=== PATIENT | male | born 1960 | race African-American/Black ===

== ENCOUNTER 2019-11-21 11:04 | Emergency (ER) | payer OTHER, BC, SELFPAY ==
--- NOTE | ~2019-11-21 | XR_ITS ---
EXAMINATION: XR ankle RT min 3V DATE: 11/21/2019 11:32 INDICATION: Medial right ankle pain post injury TECHNIQUE: Anteroposterior, oblique, mortise, and lateral views of the right ankle were obtained. COMPARISON: None. FINDINGS: Small triangular ossicle along the tip of the lateral malleolus which represent a couple projections appears to lack cortication along its cephalad margin suggesting a mildly distracted avulsion fractur e involving the tip of the medial malleolus. Differential would include heterotopic ossification rela rickey to chronic deltoid ligament sprain. Alignment is otherwise normal. No other fractures identified. Joint spaces are relatively preserved. Small plantar calcaneal spur. Soft tissue swelling about the medial malleolus. No ankle joint effusion. IMPRESSION: 1. Likely mildly distracted avulsion fracture at the tip of the medial malleolus. Differential would include heterotopic ossicle related to chronic deltoid ligament sprain. Reviewed, dictated and finalized at location A. IMPRESSION: 1. Likely mildly distracted avulsion fracture at the tip of the medial malleolu s. Differential would include heterotopic ossicle related to chronic deltoid li gament sprain.
[2019-11-21 11:13] VITALS: BP 130/93; PULSE 86; RESP 18; TEMP 36.6; O2SAT 99
--- NOTE | 2019-11-21 11:15 | PC.NURSE ---
PREETHI Dickerson at bedside for assessment.
--- NOTE | 2019-11-21 11:21 | ED.LOWEXIN ---
HPI - Extremity Injury (Lower) General Chief Complaint: Extremity Injury, Lower Stated Complaint: right ankle pain Time Seen by Provider: 11/21/19 11:10 Source: patient Mode of arrival: ambulatory Limitations: no limitations History of Present Illness HPI Narrative: This is a 59-year-old male that presents the emergency department for right ankle pain x1 month. Reports he twisted the ankle a month ago and was diagnosed with ankle sprain. Reports he has continued to work since. Reports initially he was given an air splint which helped. Reports yesterday he wore just an [place] wrap on the ankle and since his pain has worsened again. Denies new injuries, decreased range of motion or numbness. Related Data Allergies Allergy/AdvReac Type Severity Reaction Status Date / Time No Known Allergies Allergy Verified 11/21/19 11:13 Review of Systems Review of Systems: Narrative: CONSTITUTIONAL: Denies fever SKIN: Denies rash or itching. MUSCULOSKELETAL: Reports joint pain, and myalgia. NEUROLOGIC: Denies numbness All systems reviewed & are unremarkable except as noted in HPI and below PMFSH Social History Social History (Updated 11/21/19 @ 11:23 by Jayla Powell PA-C) Smoking status: Never smoker Substance use: never Exam Narrative: Exam Narrative: GENERAL: Well-appearing, well-nourished, and in no acute distress. HEAD: Normocephalic, atraumatic. EYES: EOMI. EXTREMITIES: Normal range of motion. No edema or obvious deformity. Normal DP pulses. Normal sensation SKIN: Warm, dry, no rash. NEURO: No focal deficits. Alert and oriented x3. PSYCH: Normal mood and affect Course Consultations Consultation #1: Spoke with Dr. Concepcion about patient and work-up who saw patient in the ED. He will follow-up with patient in clinic Date: 11/21/19 Time: 12:24 Vital Signs Vital signs: Vital Signs Temperature 97.8 F 11/21/19 11:13 Pulse Rate 86 11/21/19 11:13 Respiratory Rate 18 11/21/19 11:13 Blood Pressure 130/93 H 11/21/19 11:13 Pulse Oximetry 99 11/21/19 11:13 Temperature 97.8 F 11/21/19 11:13 Pulse Rate 86 11/21/19 11:13 Respiratory Rate 18 11/21/19 11:13 Blood Pressure 130/93 H 11/21/19 11:13 Pulse Oximetry 99 11/21/19 11:13 MDM - Extremity Injury (Lower) MDM Narrative Medical decision making narrative: Patient presents to the emergency department for right ankle injury 1 month ago. Right ankle x-ray shows a mildly distracted avulsion fracture of the tip of the medial malleolus. Spoke with Dr. Concepcion who saw patient in the ED. Patient can use his air splint that he has and will be given crutches. Instructed to rest, ice, elevate and take pain medication as needed. He is to follow-up with Dr. Concepcion in clinic. He was given warnings to return to the ER Imaging Data Radiologist's impression: ITS Impressions Ankle X-Ray 11/21/19 11:33 IMPRESSION: 1. Likely mildly distracted avulsion fracture at the tip of the medial malleolus. Differential would include heterotopic ossicle related to chronic deltoid ligament sprain. Critical Care Time Critical Care Time Critical Care Time: No Discharge Plan Discharge Clinical Impression: Avulsion fracture of medial malleolus of right tibia Qualifiers: Encounter type: initial encounter Fracture type: closed Qualified Code(s): S82.51XA - Displaced fracture of medial malleolus of right tibia, initial encounter for closed fracture Patient Disposition: Home, Self-Care Condition: Stable Instructions: Ankle Fracture (ED) Additional Instructions: Return to the emergency department if you experience fever, redness and swelling of your leg, or any other symptoms that are concerning to you Wear splint and use crutches. No weight on the affected leg. Ice and elevate extremity. Pain medication as needed Follow up with orthopedics for further care. Prescriptions: New hydrocodone-acetaminophen 5-325 mg tablet 1
--- NOTE | 2019-11-21 11:25 | PC.NURSE ---
portable xray at bedside at this time.
[2019-11-21] MEDS: KETOROLAC (*BKC) 60 MG/2 ML VIAL IM (11:30)
[2019-11-21 12:38] VITALS: BP 128/90; PULSE 67; RESP 18; O2SAT 98
--- NOTE | 2019-11-21 17:00 | P.CONOP_ITS ---
Assessment and Plan Assessment and plan (1) Avulsion fracture of medial malleolus of right tibia: Qualifiers: Encounter type: initial encounter Fracture type: closed Qualified Code(s): S82.51XA - Displaced fracture of medial malleolus of right tibia, initial encounter for closed fracture Code(s): S82.51XA - Displaced fracture of medial malleolus of right tibia, initial encounter for closed fracture Status: Acute Assessment and Plan: Medial malleolus avulsion fracture. Partially healed injury. Increased pain recently after discontinuing the Aircast stirrup splint. I recommend using the Aircast again. He may bear weight as tolerated. I reviewed the radiographs with the patient and his . Small distal fragment of the medial malleolus shows mild displacement. The ankle mortise appears otherwise intact. Expect good healing of the deltoid ligament despite the nonunion. History of Present Illness HPI Consult date: 11/21/19 Chief complaint: right ankle pain Narrative: 59-year-old male presents with severe medial ankle pain. Reports twisting ankle severely approximately 1 month ago. He was treated with an Aircast splint. He continue to work. Injury occurred at work. He is doing very well despite some persistent swelling and pain until recently. He was changed to a afterschool support brace. [place] pressure on arch on the medial aspect of the ankle with this wrap. No further instability. Associated swelling present. No numbness or tingling. No previous history of injury. Pain is primaily medial and anterior. Review of Systems Review of Systems: All systems reviewed & are unremarkable except as noted in HPI and below [facility] Social History Social History (Updated 11/21/19 @ 11:23 by Jayla Powell PA-C) Smoking status: Never smoker Substance use: never Meds Home Medications and Allergies Home Medications Medication Instructions Recorded Confirmed Type hydrocodone-acetaminophen 1 tablet PO Q6H PRN #14 tablet 11/21/19 Rx Allergies Allergy/AdvReac Type Severity Reaction Status Date / Time No Known Allergies Allergy Verified 11/21/19 11:13 Vital Signs Vital Signs - 24 hr 11/21/19 11:13 11/21/19 12:38 Temperature 36.6 C Pulse Rate 86 67 Respiratory Rate 18 18 Blood Pressure 130/93 H 128/90 Pulse Oximetry 99 98 Exam Narrative: Exam Narrative: Healthy-appearing male. No distress. Appropriate affect. Shows good insight. Right foot mild pes planus. Exquisite tenderness at the anteromedial deltoid ligament and distal medial malleolus. Moderate swelling. No ecchymosis. No gross instability. Dorsiflexion 5? plantar flexion 30?. No significant tenderness at the distal fibula. Anterolateral ankle ligaments are mildly tender. Anterior drawer is limited by pain. Achilles feels benign. No other forefoot deformities are unusual skin changes. Tibia leg and knee appear normal. Contralateral foot and ankle similar pes planus but no other significant findings. Capillary refill is brisk. Dorsalis pedis pulse palpable. Results Labs Labs: All other labs normal.
== END 2019-11-21 12:40 | disposition home or self-care (01) ==
PROVIDERS: Emergency Provider Emergency Medicine
DX: S82.51XA Displaced fracture of medial malleolus of right tibia, initial encounter for closed fracture (principal); X50.9XXA Other and unspecified overexertion or strenuous movements or postures, initial encounter
CPT/HCPCS: 73610; 96372; 99284; J1885

== ENCOUNTER 2020-05-06 12:42 | Emergency (ER) | payer BC, SELFPAY ==
[2020-05-06 12:58] VITALS: PULSE 90; TEMP 36.6; O2SAT 99
[2020-05-06] MEDS: TETANUS,DIPHTHERIA,AC PERTUSSIS ADULT (0.5 ML) BOOSTRIX IM (13:54)
[2020-05-06 14:18] VITALS: BP 132/97; PULSE 74; RESP 18; TEMP 36.8; O2SAT 99
--- NOTE | 2020-05-06 21:56 | ED.GENADULT ---
HPI - General Adult General Chief complaint: Wound/Laceration Stated complaint: L FINGER LAC Time Seen by Provider: 05/06/20 12:44 Source: patient Mode of arrival: ambulatory Limitations: no limitations History of Present Illness HPI narrative: Patient presents with chief complaint of left index finger laceration that he sustained after accidentally cutting himself with a kitchen knife. Patient reports some mild bleeding but denies any bony tenderness or loss sensation. Patient states that he is not up-to-date on tetanus. Related Data Home Medications Medication Instructions Recorded Confirmed No Home Medications 05/06/20 05/06/20 Allergies Allergy/AdvReac Type Severity Reaction Status Date / Time No Known Allergies Allergy Verified 05/06/20 12:57 Review of Systems Review of Systems: Narrative: CONSTITUTIONAL: Denies fever, chills, or sweats. EYES: Denies visual changes, redness, or discharge. ENT: Denies rhinorrhea, congestion, sore throat, or otalgia. CARDIOVASCULAR: Denies chest pain, palpitations, or edema. RESPIRATORY: Denies cough or dyspnea. GASTROINTESTINAL: Denies abdominal pain, nausea, vomiting, or diarrhea. GENITOURINARY: Denies dysuria or hematuria. SKIN: Reports laceration denies rash or itching. MUSCULOSKELETAL: Denies back pain, joint pain, or myalgia. NEUROLOGIC: Denies headache, numbness, dizziness, or weakness. PSYCHIATRIC: Denies anxiety or depression. [facility] Social History Social History (Updated 11/21/19 @ 11:23 by Jayla Powell PA-C) Smoking status: Never smoker Substance use: never Gender identity (if verbalized by the patient): Male Exam Narrative: Exam Narrative: GENERAL: Well-appearing, well-nourished, and in no acute distress. HEAD: Normocephalic, atraumatic. EYES: PERRLA and EOMI. CHEST: Clear to auscultation. No respiratory distress. No wheezes rales or rhonchi HEART: Regular rate and rhythm. EXTREMITIES: Normal range of motion. No edema. SKIN: 2 cm linear well approximated laceration to the volar aspect left index finger. Warm, dry, no rash. NEURO: No focal deficits. Alert and oriented x3. PSYCH: Normal mood and affect. Course Vital Signs Vital signs: Vital Signs Temperature 97.9 F 05/06/20 12:58 Pulse Rate 90 05/06/20 12:58 Pulse Oximetry 99 05/06/20 12:58 Temperature 98.2 F 05/06/20 14:18 Pulse Rate 74 05/06/20 14:18 Respiratory Rate 18 05/06/20 14:18 Blood Pressure 132/97 H 05/06/20 14:18 Pulse Oximetry 99 05/06/20 14:18 Procedures Laceration Laceration 1: Site: upper extremity Side (If applicable): left Size (cm): 2 Description: linear Depth: simple, single layer Local Anesthetic: none Pre-repair: irrigated extensively ====== Skin Level ====== Skin layer closed with: dermabond ====== Subcutaneous Layer ====== ====== Muscle Layer ====== ====== Tendon Layer ====== Dressing: Finger splint applied to laceration protection Medical Decision Making MDM Narrative Medical decision making narrative: Discussed signs of infection and require closer follow-up as well as wound care instructions. Patient verbalized understanding and agreement with plan denies any other questions or concerns Differential Diagnosis Differential Diagnosis: Laceration, abscess, abrasion Vital Signs Vital Signs: Vital Signs Temperature 97.9 F 05/06/20 12:58 Pulse Rate 90 05/06/20 12:58 Pulse Oximetry 99 05/06/20 12:58 Temperature 98.2 F 05/06/20 14:18 Pulse Rate 74 05/06/20 14:18 Respiratory Rate 18 05/06/20 14:18 Blood Pressure 132/97 H 05/06/20 14:18 Pulse Oximetry 99 05/06/20 14:18 Discharge Plan Discharge Clinical Impression: Laceration Patient Disposition: Home, Self-Care Condition: Improved Instructions: Antibiotic Form, Laceration (ED) Additional Instructions: Keep areas clean. Wash with antibacterial so
== END 2020-05-06 14:23 | disposition home or self-care (01) ==
PROVIDERS: Emergency Provider Emergency Medicine
DX: S61.211A Laceration without foreign body of left index finger without damage to nail, initial encounter (principal); Z23 Encounter for immunization; W26.0XXA Contact with knife, initial encounter
CPT/HCPCS: 12001; 90471; 90715; 99282

== ENCOUNTER 2022-03-22 22:49 | Emergency (ER) | payer BC, SELFPAY ==
--- NOTE | ~2022-03-22 | XR_ITS ---
EXAMINATION: XR finger 2nd RT min 2V DATE: 03/22/2022 23:24 INDICATION: Right hand second digit injury. TECHNIQUE: 4 views of right hand second digit were obtained. COMPARISON: None. FINDINGS: Bone alignment is normal. There is a nondisplaced stellate fracture of second distal phalan x. 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 IMPRESSION: 1. Nondisplaced stellate fracture of second distal phalanx. Reviewed, dictated and finalized at location A.
[2022-03-22 22:51] VITALS: BP 148/98; PULSE 81; RESP 16; TEMP 36.8; O2SAT 100
--- NOTE | 2022-03-22 23:48 | ED.UPPEXIN ---
HPI - Extremity Injury (Upper) General Chief Complaint: Extremity Injury, Upper Stated Complaint: right index injury Time Seen by Provider: 03/22/22 23:02 History of Present Illness HPI narrative: Patient is a 62-year-old male who presents ER with injury to his right finger. He was putting a 45 pound weight back on the rack when it slipped and he cut his finger. No active bleeding. No pain over the finger but the fatpad has a laceration. No numbness or tingling. Use tetanus up-to-date. Range of motion intact. Related Data Allergies Allergy/AdvReac Type Severity Reaction Status Date / Time No Known Allergies Allergy Verified 05/06/20 12:57 Review of Systems Review of Systems: All systems reviewed & are unremarkable except as noted in HPI and below Musculoskeletal: Musculoskeletal: Denies arthralgias and Denies joint swelling Integumentary/Breasts: Skin/Breast: Denies erythema and Denies rash Comments: Finger laceration. Neurologic: Denies focal weakness and Denies numbness PMFSH Past Medical History Medical History (Updated 03/23/22 @ 01:34 by Timothy Fan MD) Healthy adult male Surgical History Surgical History (Updated 03/23/22 @ 00:26 by Timothy Fan MD) No pertinent past surgical history Social History Social History (Updated 11/21/19 @ 11:23 by Jayla Powell PA-C) Smoking status: Never smoker Substance use: never Gender identity (if verbalized by the patient): Male Exam Narrative: GENERAL: Well-appearing, well-nourished, and in no acute distress. HEAD: Normocephalic, atraumatic. HEART: Regular rate and rhythm. Normal peripheral pulses. EXTREMITIES: Focused exam of the right hand reveals a 1.5 cm laceration over the fat pad of the digit with intact flexion extension DIP/PIP. Sensation intact. Minimal bruising over the fat pad as well. On tenderness over the dorsal aspect of the finger but no visible evidence of trauma. SKIN: Warm, dry, no rash. NEURO: Alert and oriented x3. PSYCH: Normal mood and affect. Course Vital Signs Vital signs: Vital Signs Temperature 98.3 F 03/22/22 22:51 Pulse Rate 81 03/22/22 22:51 Respiratory Rate 16 03/22/22 22:51 Blood Pressure 148/98 H 03/22/22 22:51 Pulse Oximetry 100 03/22/22 22:51 Oxygen Delivery Room Air 03/22/22 22:51 Temperature 98.3 F 03/22/22 22:51 Pulse Rate 72 03/23/22 01:00 Respiratory Rate 16 03/23/22 01:00 Blood Pressure 151/99 H 03/23/22 01:00 Pulse Oximetry 100 03/23/22 01:00 Oxygen Delivery Room Air 03/22/22 22:51 Procedures Laceration Laceration 1: Date: 03/23/22 Time: 01:20 Site: other (2nd finger) Side (If applicable): right Size (cm): 1.5 Description: linear Depth: simple, single layer Local Anesthetic: lidocaine 2% and with epi Amount of anesthesia used (mL): 1.5 Pre-repair: irrigated ====== Skin Level ====== Skin layer closed with: nylon Size (cm): 5-0 Number of sutures: 3 Technique: simple, interrupted ====== Subcutaneous Layer ====== ====== Muscle Layer ====== ====== Tendon Layer ====== Dressing: Finger splint applied. MDM - Extremity Injury (Upper) Imaging Data My impression: Right second digit x-ray: Nondisplaced fracture of the dorsal aspect of the distal phalanx. Discharge Plan Discharge Clinical Impression: Fracture of distal phalanx of finger, Finger laceration Patient Disposition: Home, Self-Care Condition: Stable Instructions: Antibiotic Form, Care For Your Stitches (ED), Finger Fracture (ED) Additional Instructions: Will need your sutures out in 14 days. Follow-up with primary care doctor. We are going to be treated with an antibiotic since you have an open wound near a fracture. This takes as directed. Return to the ER if your finger is red and hot, there is pus draining from the wound, you have a
[2022-03-23 01:00] VITALS: BP 151/99; PULSE 72; RESP 16; O2SAT 100
== END 2022-03-23 01:40 | disposition home or self-care (01) ==
PROVIDERS: Emergency Provider Emergency Medicine
DX: S61.210A Laceration without foreign body of right index finger without damage to nail, initial encounter (principal); S62.660A Nondisplaced fracture of distal phalanx of right index finger, initial encounter for closed fracture; W22.8XXA Striking against or struck by other objects, initial encounter
CPT/HCPCS: 12001; 29130; 73140; 99284

== ENCOUNTER 2023-02-10 12:07 | Emergency (ER) | payer BC, SELFPAY ==
[2023-02-10] VITALS (17 sets, daily range): BP systolic 103–127; BP diastolic 82–96; PULSE 71–91; RESP 12–27; TEMP 36.4–36.5; O2SAT 96–100
--- NOTE | ~2023-02-10 | XR_ITS ---
XR chest 1V portable 02/10/2023 13:33 Indication: Shortness of breath with exertion Procedure: AP portable chest Comparison: No prior studies for comparison. Findings: Cardiomegaly. There are bilateral perihilar interstitial infiltrates with peribronchial thi ckening. No pleural effusion, pneumothorax or acute osseous abnormality. Impression: 1: Bilateral perihilar interstitial infiltrates may represent mild edema or pneumonia. Reviewed, dictated and finalized at location A. Impression: 1: Bilateral perihilar interstitial infiltrates may represent mild edema or pne umonia.
--- NOTE | 2023-02-10 12:17 | ECG_ITS ---
Measurements Intervals [place] Rate: 84 P: 81 IN: 215 QRS: -45 QRSD: 72 T: 92 QT: 387 QTc: 460 Interpretive Statements SINUS RHYTHM WITH FIRST DEGREE AV BLOCK ATRIAL PREMATURE COMPLEX BORDERLINE R WAVE PROGRESSION, ANTERIOR LEADS LOW QRS VOLTAGE IN DIFFUSE LEADS BORDERLINE T WAVE ABNORMALITY- INF/LAT LEADS BASELINE ARTIFACT- II, III, AVR, AVL, AVF, V1-V6 BORDERLINE ECG NO PREVIOUS ECG AVAILABLE FOR COMPARISON Electronically Signed On 02-10-2023 14:47:33 CDT by Kiran Barfield D.O.
[2023-02-10 12:51] LABS: Basophils Absolute Auto 0.1 K/mm3 (0.0-0.1); Eosinophils Absolute Auto 0.2 K/mm3 (0-0.3); Hemoglobin 10.5 g/dL (14.0-18.0); Lymphocytes Absolute Auto 1.59 K/mm3 (0.9-3.2); Lymphocytes Percent Auto 31.9 % (18.3-44.2); Mean Corpuscular HGB Conc 30.9 g/dl (32-36); Mean Corpuscular Hemoglobin 27.6 pg (26-34); Mean Corpuscular Volume 89.2 fl (80-100); Mean Platelet Volume 10.6 fl (7.4-10.4); Monocytes Absolute Auto 0.6 K/mm3 (0.1-0.6); Monocytes Percent Auto 11.2 % (2.6-8.5); Neutrophils Absolute Auto 2.6 K/mm3 (1.3-6.7); Neutrophils Percent Auto 52.9 % (45.5-73.1); Platelet Count Result 274 k/mm3 (150-375); Red Blood Count 3.81 M/mm3 (4.6-6.20); Red Cell Distribution Width 15.7 % (11.5-14.5)
[2023-02-10 13:00] LABS: Alanine Aminotransferase 40 U/L (6-50); Albumin Level 3.6 g/dL (3.5-5.1); Alkaline Phosphatase 80 U/L (38-126); Anion Gap 4 mmol/L (8-16); Aspartate Amino Transferase 35 U/L (17-59); Bilirubin,Total 1.2 mg/dL (0.2-1.3); Blood Urea Nitrogen 16 mg/dL (9-20); Calcium 8.7 mg/dL (8.4-10.2); Carbon Dioxide 26 mmol/L (22-30); Chloride 106 mmol/L (98-107); Estimated CRCL calculation 63 ml/min; Estimated Glomerular Filt Rate > 60; Glucose 96 mg/dL (65-110); Potassium 4.2 mmol/L (3.4-5.0); Sodium 136 mmol/L (137-145)
[2023-02-10 13:05] LABS: INR 1.1; Prothrombin Time 14.8 Seconds (11.1-14.7)
[2023-02-10 13:06] LABS: Partial Thromboplastin Time 25.8 SECONDS (22.3-36.8)
[2023-02-10 13:09] LABS: NT Pro B Type Natriuretic Pept 4460 pg/mL (19.9-100)
[2023-02-10] MEDS: FUROSEMIDE INJ 40 MG/4 ML VIAL IV PUSH (14:18)
--- NOTE | 2023-02-10 14:19 | ED.SOB ---
HPI - SOB/Dyspnea General Chief Complaint: Shortness of Breath/Dyspnea Stated Complaint: Gas, SOB Time Seen by Provider: 02/10/23 12:21 History of Present Illness HPI Narrative: 63-year-old male presented to the ED for evaluation of 1.5 months of worsening leg swelling and shortness of breath. Patient denies any prior history of congestive heart failure. Patient denies any prior history of UT or hypertension. Patient states symptoms have been intermittent over the course of the last 1.5 months and do improve with leg elevation. Related Data Allergies Allergy/AdvReac Type Severity Reaction Status Date / Time No Known Allergies Allergy Verified 02/10/23 12:13 Review of Systems Review of Systems: All systems reviewed & are unremarkable except as noted in HPI and below PMFSH Past Medical History Medical History (Updated 02/11/23 @ 00:01 by Chele Horn) Healthy adult male Surgical History Surgical History (Updated 03/23/22 @ 00:26 by Timothy Fan MD) No pertinent past surgical history Social History Social History (Updated 11/21/19 @ 11:23 by Jayla Powell PA-C) Smoking status: Never smoker Substance use: never Gender identity (if verbalized by the patient): Male Exam Narrative: APPEARANCE: Well appearing, no pain, no distress, well-nourished. HEAD: normocephalic, atraumatic. EYES: PERRLA/EOMI, conjunctivae clear. NOSE: Normal no drainage NECK: Supple. No adenopathy, no masses. RESPIRATORY: Airway patent, increased work of breathing CARDIOVASCULAR: Regular rate and rhythm without murmurs rubs or gallops. ABDOMINAL: Soft, nontender, nondistended, normal bowel sounds MUSCULOSKELETAL: Moves all extremities. Strength/ROM intact, lower extremity edema and ecchymosis, right upper extremity ecchymosis NEURO: Alert. Cranial nerves II through XII intact. SKIN: Warm, dry. Normal Color Course Course Emergency Course: 63-year-old male presented ED for evaluation of intermittent shortness of breath. Patient is afebrile with no leukocytosis and a stable hemoglobin. Patient has normal kidney function but does have an elevated BNP of 4460. Chest x-ray does show pulmonary edema and cardiomegaly. Attempted to contact the patient's primary care physician. Patient was offered admission but prefers to have outpatient follow-up. Patient was treated with Lasix in the ED and had significant urinary output and did feel improvement while in the ED. Patient was started on Lasix for home. Patient was encouraged of close follow-up with her primary care physician. Patient family are also educated on reasons to return to the emergency department. Vital Signs Vital signs: Vital Signs Temperature 97.7 F 02/10/23 12:09 Pulse Rate 91 02/10/23 12:09 Respiratory Rate 19 02/10/23 12:09 Blood Pressure 103/82 02/10/23 12:09 Pulse Oximetry 99 02/10/23 12:09 Oxygen Delivery Room Air 02/10/23 12:09 Temperature 97.5 F L 02/10/23 12:23 Pulse Rate 71 02/10/23 16:06 Respiratory Rate 13 02/10/23 16:06 Blood Pressure 127/95 H 02/10/23 16:06 Pulse Oximetry 99 02/10/23 16:06 Oxygen Delivery Room Air 02/10/23 12:18 MDM - SOB/Dyspnea Differential Diagnosis Differential diagnosis: Likely congestive heart failure and other Lab Data Attestation: I reviewed the patient's lab results. 02/10/23 12:45 02/10/23 12:45 Labs: Lab Results 02/10/23 Range/Units 12:45 WBC 5.0 (4.5-10.0) K/mm3 RBC 3.81 L (4.6-6.20) M/mm3 Hgb 10.5 L (14.0-18.0) g/dL Hct 34.0 L (42.0-52.0) % MCV 89.2 (80-100) fl MCH 27.6 (26-34) pg MCHC 30.9 L (32-36) g/dl RDW 15.7 H (11.5-14.5) % Plt Count 274 (150-375) k/mm3 MPV 10.6 H (7.4-10.4) fl Immature Gran % (Auto) 0.0 (0-0.5) % Neut % (Auto) 52.9 (45.5-73.1) % Lymph % (Auto) 31.9 (18.3-44.2) % [place] % (Auto) 11.2 H (2.6-8.5) % Eos % (Auto) 3.0 (0-4.4) % Baso % (Auto) 1.0 (0.2-
== END 2023-02-10 16:07 | disposition home or self-care (01) ==
PROVIDERS: Emergency Provider Emergency Medicine
DX: I50.9 Heart failure, unspecified (principal); J81.1 Chronic pulmonary edema; R22.43 Localized swelling, mass and lump, lower limb, bilateral; I44.0 Atrioventricular block, first degree; I49.1 Atrial premature depolarization; R94.31 Abnormal electrocardiogram [ECG] [EKG]
CPT/HCPCS: 36415; 71045; 80053; 83880; 85025; 85610; 85730; 93005; 96374; 99284; J1940

== ENCOUNTER 2023-04-22 15:24 | Inpatient (IN) | payer BC, SELFPAY ==
[2023-04-22] VITALS (9 sets, daily range): BP systolic 109–120; BP diastolic 90–93; PULSE 63–123; RESP 17–28; TEMP 36.6; O2SAT 97–100
--- NOTE | ~2023-04-22 | CT_ITS ---
Clinical Indication: Dyspnea CT Scan of the Chest with Contrast: Technique: Contiguous sections were acquired throughout the chest after intravenous administration of 100 cc of Omnipaque 350. Dose reduction technique was used on this scan by utilizing automated expos ure control and iterative reconstruction technique. The dose-length product (DLP) was 648.56 mGy-cm. Findings: There are enlarged prevascular and subcarinal lymph nodes. There is no filling defect in the pulmonar y arterial tree to suggest pulmonary embolus. There is no evidence of aortic aneurysm. No pericardial effusion. Small right pleural effusion present. No left pleural effusion. There is mild patchy groundglass opacity in the left upper lobe. Possible minimal groundglass nodules in the left lower lobe minimal bibasilar interstitial prominence. Images through the upper abdomen reveal 2.8 cm right adrenal nodule, with Hounsfield units of 14.. Impression: No pulmonary embolus evident. Mild patchy ground glass opacity in the left upper lobe, with minimal involvement in the left lower l obe. Possible mild dependent interstitial thickening. Findings overall suggest mild pulmonary edema. Correlate clinically for infection. Small right pleural effusion. 2.8 cm relatively low-density right adrenal nodule is most likely adenoma, though strictly indetermin ate based on the Hounsfield units on this exam. Follow-up nonemergent MR could be considered to furth er confirm adenoma, as indicated. Reviewed, dictated and finalized at [facility]. [employer] Impression: No pulmonary embolus evident. Mild patchy ground glass opacity in the left upper lobe, with minimal involveme nt in the left lower lobe. Possible mild dependent interstitial thickening. Fin dings overall suggest mild pulmonary edema. Correlate clinically for infection. Small right pleural effusion. 2.8 cm relatively low-density right adrenal nodule is most likely adenoma, thou gh strictly indeterminate based on the Hounsfield units on this exam. Follow-up nonemergent MR could be considered to further confirm adenoma, as indicated.
--- NOTE | ~2023-04-22 | XR_ITS ---
Portable chest x-ray Comparison: 02/10/2023 Clinical History: Dyspnea Findings: There is minimal haziness of the left lung as compared to the right, which could indicate small layering effusion. No other parenchymal disease evident. Cardiomediastinal silhouette is stabl e. Bones and soft tissues are unremarkable. Impression: Possible small layering left pleural effusion. Reviewed, dictated and finalized at location . [employer] Impression: Possible small layering left pleural effusion.
--- NOTE | 2023-04-22 22:27 | ECG_ITS ---
Measurements Intervals [place] Rate: 88 P: AL: 0 QRS: -29 QRSD: 80 T: 149 QT: 388 QTc: 471 Interpretive Statements SINUS RHYTHM WITH PACS BORDERLINE LEFT AXIS DEVIATION [QRS AXIS < -20] LOW QRS VOLTAGE IN EXTREMITY LEADS [QRS DEFLECTION < 0.5 mV IN LIMB LEADS] NONSPECIFIC T-WAVE ABNORMALITY ABNORMAL ECG COMPARED TO ECG 02/10/2023 12:20:58 NO SIGNIFICANT DIFFERENCE Electronically Signed On 04-23-2023 15:05:51 MEDICAL DOCTOR NUCLEAR MEDICINE by Omar Savage M.D.
[2023-04-22] MEDS: FUROSEMIDE INJ 40 MG/4 ML VIAL IV PUSH (22:57)
[2023-04-22 23:07] LABS: Basophils Absolute Auto 0.1 K/mm3 (0.0-0.1); Basophils Percent Auto 0.9 % (0.2-1.2); Eosinophils Absolute Auto 0.2 K/mm3 (0-0.3); Eosinophils Percent Auto 3.4 % (0-4.4); Hematocrit 31.4 % (42.0-52.0); Hemoglobin 9.2 g/dL (14.0-18.0); Immature Granulocyte Absolute 0.02 K/mm3 (0.00-0.031); Immature Granulocyte Percent A 0.3 % (0-0.5); Lymphocytes Absolute Auto 2.56 K/mm3 (0.9-3.2); Lymphocytes Percent Auto 39.8 % (18.3-44.2); Mean Corpuscular HGB Conc 29.3 g/dl (32-36); Mean Corpuscular Hemoglobin 24.2 pg (26-34); Mean Corpuscular Volume 82.6 fl (80-100); Mean Platelet Volume 10.4 fl (7.4-10.4); Monocytes Absolute Auto 0.8 K/mm3 (0.1-0.6); Monocytes Percent Auto 12.3 % (2.6-8.5); Neutrophils Absolute Auto 2.8 K/mm3 (1.3-6.7); Neutrophils Percent Auto 43.3 % (45.5-73.1); Platelet Count Result 274 k/mm3 (150-375); White Blood Count 6.4 K/mm3 (4.5-10.0)
[2023-04-22 23:22] LABS: INR 1.2; Prothrombin Time 15.7 Seconds (11.1-14.7)
[2023-04-22 23:29] LABS: Alanine Aminotransferase 66 U/L (6-50); Albumin Level 3.4 g/dL (3.5-5.1); Alkaline Phosphatase 84 U/L (38-126); Anion Gap 9 mmol/L (8-16); Aspartate Amino Transferase 47 U/L (17-59); Bilirubin,Total 0.8 mg/dL (0.2-1.3); Blood Urea Nitrogen 20 mg/dL (9-20); Calcium 8.1 mg/dL (8.4-10.2); Carbon Dioxide 24 mmol/L (22-30); Chloride 101 mmol/L (98-107); Estimated CRCL calculation 54 ml/min; Estimated Glomerular Filt Rate > 60; Glucose 93 mg/dL (65-110); Lipase 249 U/L (23-300); Potassium 3.4 mmol/L (3.4-5.0); Sodium 134 mmol/L (137-145)
[2023-04-22 23:30] LABS: Appearance Urine Clear (Clear); Bacteria Urine None Seen /hpf; Bilirubin Urine Negative (Negative); Blood Urine Negative (Negative); Color Urine Yellow (Yellow); Glucose Urine UA Negative (Negative); Ketones Urine Negative (Negative); Leukocyte Esterase Ur Negative LEU/UL (Negative); Nitrate Urine Negative (Negative); Non Pathogenic Casts 0-2; Protein Urine Trace mg/dL (Negative); RBC Urine 0-2 /hpf (0-2); Specific Grav Ur 1.012 (1.001-1.035); Squamous Epithelial Cell Urine None seen /hpf (Few); WBC Urine 0-5 /hpf; pH Urine 6.5 (5.0-9.0)
--- NOTE | 2023-04-22 23:45 | PC.NURSE ---
THis RN took pt report from ZACK Echevarria. This RN assumed care of patient.
[2023-04-22 23:47] LABS: NT Pro B Type Natriuretic Pept 5980 pg/mL (19.9-100)
[2023-04-22 23:56] LABS: Add Urine Microscopic? YES
[2023-04-23] VITALS (34 sets, daily range): BP systolic 102–118; BP diastolic 68–86; PULSE 67–122; RESP 15–27; TEMP 36.4–36.5; O2SAT 90–100; BMI 29.2
--- NOTE | 2023-04-23 00:13 | ED.GENADULT ---
HPI - General Adult General Chief complaint: Extremity Problem,Nontraumatic Stated complaint: swelling bilateral legs Time Seen by Provider: 04/22/23 22:10 History of Present Illness HPI narrative: Patient is 61-year-old gentleman who presents emergency department with chief complaint of shortness of breath and peripheral edema. Patient reports that he was recently diagnosed with congestive heart failure but has not been able to have an echo done yet. Patient reports he is taking 40 mg of Lasix once daily and has attempted to see his primary doctor but has not been able to get into them yet. The patient states that he is having increasing shortness of breath increasing peripheral edema as reports having used increased pillows at night and having episodes of PND Related Data Allergies Allergy/AdvReac Type Severity Reaction Status Date / Time No Known Allergies Allergy Verified 04/22/23 15:25 Review of Systems Review of Systems: A 10 system review of systems was completed on the patient and is negative except for what is stated in the HPI. Nursing and ancillary documentation was reviewed. [facility] Past Medical History Medical History (Updated 04/23/23 @ 05:14 by Andrea Samaniego MD) Healthy adult male Surgical History Surgical History (Updated 03/23/22 @ 00:26 by Timotyh Fan MD) No pertinent past surgical history Social History Social History (Updated 11/21/19 @ 11:23 by Jayla Powell PA-C) Smoking status: Never smoker Substance use: never Gender identity (if verbalized by the patient): Male Exam Narrative: GENERAL: Well-appearing, well-nourished, and in no acute distress. HEAD: Normocephalic, atraumatic. EYES: PERRLA and EOMI. ENT: Nares clear, no rhinorrhea or epistaxis. Mucous membranes moist. NECK: Supple. CHEST: Clear to auscultation. No respiratory distress. HEART: Regular rate and rhythm. No murmur heard. Normal peripheral pulses. ABDOMEN: Soft, nontender, nondistended, normal active bowel sounds. EXTREMITIES: Normal range of motion. +1 edema. SKIN: Warm, dry, no rash. NEURO: No focal deficits. Alert and oriented x3. PSYCH: Normal mood and affect. Course Vital Signs Vital signs: Vital Signs Temperature 36.6 C 04/22/23 16:04 Pulse Rate 63 04/22/23 16:04 Respiratory Rate 18 04/22/23 16:04 Blood Pressure 109/93 H 04/22/23 16:04 Pulse Oximetry 97 04/22/23 16:04 Oxygen Delivery Room Air 04/22/23 16:04 Temperature 36.6 C 04/22/23 16:04 Pulse Rate 93 04/23/23 01:45 Respiratory Rate 23 H 04/23/23 01:45 Blood Pressure 120/93 H 04/22/23 23:01 Pulse Oximetry 99 04/22/23 23:00 Oxygen Delivery Room Air 04/22/23 16:04 Medical Decision Making MDM Narrative Medical decision making narrative: Differential diagnosis includes CHF, ACS, PE Laboratory studies were obtained on the patient showed white count 6.4 hemoglobin was 9.2 electrolytes are within normal limits troponin 0.049 BNP is 5980 urinalysis was within normal limits CTA of the chest showed no evidence of PE Vital Signs Vital Signs: Vital Signs Temperature 36.6 C 04/22/23 16:04 Pulse Rate 63 04/22/23 16:04 Respiratory Rate 18 04/22/23 16:04 Blood Pressure 109/93 H 04/22/23 16:04 Pulse Oximetry 97 04/22/23 16:04 Oxygen Delivery Room Air 04/22/23 16:04 Temperature 36.6 C 04/22/23 16:04 Pulse Rate 93 04/23/23 01:45 Respiratory Rate 23 H 04/23/23 01:45 Blood Pressure 120/93 H 04/22/23 23:01 Pulse Oximetry 99 04/22/23 23:00 Oxygen Delivery Room Air 04/22/23 16:04 Lab Data 04/22/23 22:57 04/22/23 22:57 Labs: Lab Results 04/22/23 04/22/23 Range/Units 22:57 23:15 WBC 6.4 (4.5-10.0) K/mm3 RBC 3.80 L (4.6-6.20) M/mm3 Hgb 9.2 L (14.0-18.0) g/dL Hct 31.4 L (42.0-52.0) % MCV 82.6 (80-100) fl MCH 24.2 L (26-34) pg MCHC 29.3 L (32-36) g/dl RDW 17.0 H (1
[2023-04-23] MEDS: ASPIRIN 81 MG CHEWABLE TABLET 324 MG PO (00:31)
[2023-04-23 02:42] LABS: Troponin I 0.049 ng/mL (0.000-0.034)
--- NOTE | 2023-04-23 06:53 | PC.NURSE ---
Pt visitor asked this RN for an update about pt care. This RN along with EDP Dr. Samaniego, and another RN explained to pt and pt family member about the plan for pt care along with admitting diagnosis. EDP Dr. Samaniego proceeded to explain to pt and pt family about diagnositic imaging results and lab results. Pt family member asked this RN to speak with the doctor overlooking pt care. This RN explained to pt family member the doctor overlooking pt care was hospitalist Dr. Todd. Pt visitor stated she still wanted to talk to hospitalist. This RN put out a page for hospitalist. Dr. Todd explained to this RN that pt and pt family member were going to have to wait for day shift hospitalist. This Rn relayed information back to pt and pt visitor.
--- NOTE | 2023-04-23 07:55 | PC.NURSE ---
Breakfast tray ordered
[2023-04-23] MEDS: FUROSEMIDE INJ 40 MG/4 ML VIAL IV PUSH ×2 (08:45→20:20)
[2023-04-23] MEDS: ASPIRIN 81 MG CHEWABLE TABLET PO (08:45)
[2023-04-23 09:14] LABS: Troponin I 0.048 ng/mL (0.000-0.034)
--- NOTE | 2023-04-23 11:12 | PM.IMHP ---
H&P: HPI History of Present Illness Date/Time: 04/23/23 11:12 Chief Complaint: sob Narrative: 61 year old with no significant past medical history is presenting with sob and edema. He is being worked up as an outpatient for possible heart failure, echo not completed yet. He has been started on Lasix 40 mg orally daily. However, he continues to have worsening shortness of breath, paroxysmal nocturnal dyspnea as well as peripheral edema. In the ER, workup was essentially unremarkable and working diagnosis was heart failure exacerbation. IV diuresis initiated, echo ordered and pending. Troponin was slightly elevated, but flattened. No concern for acute cardiac etiology. Review of Systems Review of Systems: 12 point review of systems was assessed and was negative except as noted in the HPI [facility] Past Medical History Medical History Healthy adult male Surgical History Surgical History No pertinent past surgical history Social History Social History Smoking status: Never smoker Alcohol intake: current Drinks per week: 1 Substance use: never Lack of Transportation: No Lack of Food: Never True Current Housing: I Have Housing Concerned About Future Housing: No Difficulty Paying Gas/Electric Bills: No Difficulty Paying for Meds: No Currently Unemployed: No Education: Don't Know Difficulty w/ Childcare or Family Care: No Gender identity (if verbalized by the patient): Male Spiritual care concerns: No Meds Home Medications and Allergies Home Medications Medication Instructions Recorded Confirmed Type Tylenol 1,000 mg BYMOUTH DAILY PRN Pain, 04/23/23 04/23/23 History Mild furosemide 20 mg tablet (Lasix) 40 mg PO DAILY 04/23/23 04/23/23 History ibuprofen 800 mg tablet 800 mg PO TIDWMEAL PRN Pain, Mild 04/23/23 04/23/23 History omeprazole 40 mg-sodium 1 cap PO DAILY 04/23/23 04/23/23 History bicarbonate 1.1 gram capsule potassium chloride 10 mEq 10 meq PO DAILY 04/23/23 04/23/23 History capsule,extended release Allergies Allergy/AdvReac Type Severity Reaction Status Date / Time No Known Allergies Allergy Verified 04/23/23 12:59 Vital Signs Vital Signs - 24 hr 04/22/23 16:04 04/22/23 22:09 04/22/23 22:10 Temperature 97.9 F Pulse Rate 63 102 H 80 Respiratory Rate 18 25 H 22 H Blood Pressure 109/93 H 113/91 H Pulse Oximetry 97 Oxygen Delivery Room Air 04/22/23 22:15 04/22/23 22:30 04/22/23 22:41 Temperature Pulse Rate 123 H 90 93 Respiratory Rate 17 22 H 24 H Blood Pressure 119/90 Pulse Oximetry 100 99 99 Oxygen Delivery 04/22/23 22:45 04/22/23 23:00 04/22/23 23:01 Temperature Pulse Rate 92 84 87 Respiratory Rate 23 H 28 H 23 H Blood Pressure 120/93 H Pulse Oximetry 98 99 Oxygen Delivery 04/23/23 00:03 04/23/23 00:21 04/23/23 00:33 Temperature Pulse Rate 93 88 Respiratory Rate 16 23 H 24 H Blood Pressure Pulse Oximetry Oxygen Delivery 04/23/23 00:45 04/23/23 01:45 04/23/23 02:51 Temperature Pulse Rate 93 93 122 H Respiratory Rate 25 H 23 H 26 H Blood Pressure Pulse Oximetry Oxygen Delivery 04/23/23 03:00 04/23/23 03:56 04/23/23 04:00 Temperature Pulse Rate 94 70 75 Respiratory Rate 26 H 17 17 Blood Pressure Pulse Oximetry 99 98 99 Oxygen Delivery 04/23/23 04:16 04/23/23 04:30 04/23/23 04:54 Temperature Pulse Rate 81 73 75 Respiratory Rate 19 17 18 Blood Pressure Pulse Oximetry 100 98 Oxygen Delivery 04/23/23 05:20 04/23/23 05:32 04/23/23 05:46 Temperature Pulse Rate 72 75 81 Respiratory Rate 18 17 17 Blood Pressure Pulse Oximetry 97 97 97 Oxygen Delivery 04/23/23 06:04 04/23/23 07:01 04/23/23 07:02 Temperature Pulse Rate 84 84 85 Respiratory
--- NOTE | 2023-04-23 12:50 | ADMGEN ---
This patient, Hakeem De Leon, was admitted to [facility] Surg Room 324-01. Patient/family oriented to hospital policies and general routines including ID bracelet, bed and alarms, visiting hours, pain management, procedures, bathroom and other care routines, personal items, smoking policy, room service/diet, and visiting hours. Information on how to activate the Rapid Response Team has been discussed. Patient/Family are encouraged to report perceived risks to care and to ask questions if they do not understand what they are told or what they should do. Report from Olinda in er.
[2023-04-23 13:23] LABS: Basophils Absolute Auto 0.1 K/mm3 (0.0-0.1); Basophils Percent Auto 1.2 % (0.2-1.2); Eosinophils Absolute Auto 0.4 K/mm3 (0-0.3); Eosinophils Percent Auto 6.2 % (0-4.4); Hematocrit 29.5 % (42.0-52.0); Hemoglobin 8.8 g/dL (14.0-18.0); Immature Granulocyte Absolute 0.02 K/mm3 (0.00-0.031); Immature Granulocyte Percent A 0.4 % (0-0.5); Lymphocytes Absolute Auto 2.39 K/mm3 (0.9-3.2); Lymphocytes Percent Auto 42.1 % (18.3-44.2); Mean Corpuscular HGB Conc 29.8 g/dl (32-36); Mean Corpuscular Hemoglobin 24.6 pg (26-34); Mean Corpuscular Volume 82.6 fl (80-100); Mean Platelet Volume 9.8 fl (7.4-10.4); Monocytes Absolute Auto 0.7 K/mm3 (0.1-0.6); Monocytes Percent Auto 12.9 % (2.6-8.5); Neutrophils Absolute Auto 2.1 K/mm3 (1.3-6.7); Neutrophils Percent Auto 37.2 % (45.5-73.1); Platelet Count Result 273 k/mm3 (150-375); Red Blood Count 3.57 M/mm3 (4.6-6.20); Red Cell Distribution Width 16.8 % (11.5-14.5); White Blood Count 5.7 K/mm3 (4.5-10.0)
[2023-04-23 13:36] LABS: Alanine Aminotransferase 54 U/L (6-50); Albumin Level 3.1 g/dL (3.5-5.1); Alkaline Phosphatase 77 U/L (38-126); Anion Gap 7 mmol/L (8-16); Aspartate Amino Transferase 54 U/L (17-59); Bilirubin,Total 0.7 mg/dL (0.2-1.3); Blood Urea Nitrogen 18 mg/dL (9-20); Calcium 7.7 mg/dL (8.4-10.2); Carbon Dioxide 28 mmol/L (22-30); Chloride 99 mmol/L (98-107); Estimated CRCL calculation 51 ml/min; Estimated Glomerular Filt Rate 57; Glucose 85 mg/dL (65-110); Potassium 3.8 mmol/L (3.4-5.0); Sodium 134 mmol/L (137-145)
[2023-04-23 13:43] LABS: Atypical Lymphocytes Present; Hypochromasia 1+ (NORMAL); Platelet Estimate Adequate (Adequate); Schistocytes None Seen (NORMAL); Target Cells 1+ (NORMAL)
[2023-04-23] MEDS: ENOXAPARIN 40 MG/0.4 ML SYRINGE SUB-Q (17:18)
[2023-04-24] VITALS (10 sets, daily range): BP systolic 114–122; BP diastolic 84–87; PULSE 68–111; RESP 16–18; TEMP 36.2–36.6; O2SAT 98–100
[2023-04-24] MEDS: BENZOCAINE/MENTHOL (*BKC) 18 EA LOZENGE 1 LOZENGE PO (05:01)
--- NOTE | 2023-04-24 06:00 | ECHO_ITS ---
Patient Info Name: Hakeem De Leon Age: 63 years : 1960 Gender: Male Ht: 72 in Wt: 215 lbs BSA: 2.25 m2 HR: 84 bpm BP: 121 / 87 mmHg Heart Rhythm: Sinus Rhythm Technical Quality: Good Exam Date: 04/24/2023 11:50 AM Exam Location: Echo Lab Patient Status: Outpatient Admit Date: 04/23/2023 Staff Ordering Physician: Andrea Samaniego MD Optimization Manager: Fanny Henson RDCS Attending Provider: Karma Todd DO Referring Physician: Danette MANDUJANO; Exam Type: CA echo doppler color flow Study Info Indications - new onset chf Complete two-dimensional, color flow and Doppler transthoracic echocardiogram is performed. Summary 1. Complete two-dimensional, color flow and Doppler transthoracic echocardiogram is performed. 2. Normal left ventricular size and thickness with no segmental wall motion abnormalities. Mild global hypokinesis, visual ejection fraction 45-50%, measured 55%. Grade 2 diastolic dysfunction is present. 3. Left atrial chamber dimension is moderately enlarged. 4. Right atrial chamber dimension is mildly enlarged. 5. There is mild mitral valve regurgitation. The eccentricity of this jet may underestimate the degree of regurgitation. 6. There is mild tricuspid valve regurgitation. 7. Mild pulmonary hypertension, estimated pulmonary arterial systolic pressure is 42 mmHg. 8. Dilated inferior vena cava with <50% collapse upon inspiration consistent with significantly elevated right atrial pressure, 20 mmHg. 9. Normal sinus rhythm. Left Ventricle Left ventricular chamber dimension is normal. Left ventricular systolic function is mildly reduced, estimated at 45-50%. There is no increased left ventricular wall thickness. Left ventricular septal wall motion is normal. The left ventricular diastolic function is grade III diastolic dysfunction. Right Ventricle Right ventricular chamber dimension is normal. Right ventricular systolic function is normal. Left Atria Left atrial chamber dimension is moderately enlarged. Right Atria Right atrial chamber dimension is mildly enlarged. Aortic Valve The aortic valve is trileaflet. There is no aortic valve sclerosis. There is no aortic valve stenosis. There is trace aortic valve regurgitation. Pulmonic Valve The pulmonic valve is normal. There is no pulmonic valve stenosis. There is no pulmonic regurgitation. Mitral Valve The mitral valve has normal leaflets. There is no mitral valve stenosis. There is mild mitral valve regurgitation. The eccentricity of this jet may underestimate the degree of regurgitation. Tricuspid Valve The tricuspid valve leaflets are normal. There is no significant tricuspid valve stenosis. There is mild tricuspid valve regurgitation. Mild pulmonary hypertension, estimated pulmonary arterial systolic pressure is 42 mmHg. Pericardium/Pleural The pericardium appears normal. There is no pericardial effusion. Inferior Vena Cava Dilated inferior vena cava with <50% collapse upon inspiration consistent with significantly elevated right atrial pressure, 20 mmHg. Aorta The aortic root size at the sinus of Valsalva is normal. The prox ascending aorta size is normal. Left Ventricular Outflow Tract Name Value Normal LVOT 2D LVOT Diameter 2.2 cm LVOT Doppler ------
[2023-04-24 07:01] LABS: Basophils Absolute Auto 0.1 K/mm3 (0.0-0.1); Basophils Percent Auto 0.8 % (0.2-1.2); Eosinophils Absolute Auto 0.4 K/mm3 (0-0.3); Eosinophils Percent Auto 5.6 % (0-4.4); Hematocrit 29.4 % (42.0-52.0); Hemoglobin 8.8 g/dL (14.0-18.0); Immature Granulocyte Absolute 0.02 K/mm3 (0.00-0.031); Immature Granulocyte Percent A 0.3 % (0-0.5); Lymphocytes Absolute Auto 2.64 K/mm3 (0.9-3.2); Lymphocytes Percent Auto 42.5 % (18.3-44.2); Mean Corpuscular HGB Conc 29.9 g/dl (32-36); Mean Corpuscular Hemoglobin 24.2 pg (26-34); Mean Corpuscular Volume 80.8 fl (80-100); Mean Platelet Volume 10.6 fl (7.4-10.4); Monocytes Absolute Auto 0.5 K/mm3 (0.1-0.6); Monocytes Percent Auto 8.2 % (2.6-8.5); Neutrophils Absolute Auto 2.6 K/mm3 (1.3-6.7); Neutrophils Percent Auto 42.6 % (45.5-73.1); Platelet Count Result 296 k/mm3 (150-375); Red Blood Count 3.64 M/mm3 (4.6-6.20); Red Cell Distribution Width 16.4 % (11.5-14.5); White Blood Count 6.2 K/mm3 (4.5-10.0)
[2023-04-24 07:36] LABS: Alanine Aminotransferase 49 U/L (6-50); Alkaline Phosphatase 85 U/L (38-126); Anion Gap 7 mmol/L (8-16); Aspartate Amino Transferase 34 U/L (17-59); Bilirubin,Total 0.7 mg/dL (0.2-1.3); Blood Urea Nitrogen 18 mg/dL (9-20); Calcium 8.1 mg/dL (8.4-10.2); Carbon Dioxide 27 mmol/L (22-30); Chloride 99 mmol/L (98-107); Cholesterol 121 mg/dL (0-200); Estimated CRCL calculation 58 ml/min; Estimated Glomerular Filt Rate > 60; Glucose 104 mg/dL (65-110); HDL Direct 28 mg/dL; Potassium 3.3 mmol/L (3.4-5.0); Sodium 133 mmol/L (137-145); Triglycerides 69 mg/dL (<150)
[2023-04-24 07:46] LABS: LDL Cholesterol Direct 78 mg/dL
[2023-04-24 08:16] LABS: Hemoglobin A1C 5.1 % (<5.7)
[2023-04-24] MEDS: FUROSEMIDE INJ 40 MG/4 ML VIAL IV PUSH ×2 (09:12→20:16)
[2023-04-24] MEDS: ASPIRIN 81 MG CHEWABLE TABLET PO (09:12)
[2023-04-24] MEDS: ENOXAPARIN 40 MG/0.4 ML SYRINGE SUB-Q (09:13)
--- NOTE | 2023-04-24 10:29 | PM.CNCAR ---
Assessment and Plan Assessment and plan (1) Acute exacerbation of CHF (congestive heart failure): Code(s): I50.9 - Heart failure, unspecified Status: Acute Assessment and Plan: patient presents with acute on chronic CHF, initially diagnosed in January. I suspect systolic CHF since he appears to have cardiomegaly on his chest x-ray. No obvious etiology point. Has low voltage on his EKG so we may need to consider amyloidosis in the differential. Counseled patient extensively about CHF, signs and symptoms, treatment etc.. -- Echo is pending -- continue IV Lasix 40 mg IV push b.i.d. --Add potassium for hypokalemia -- daily BMP -- discontinue ibuprofen -- add spironolactone and Jardiance -- treatment with ARB/ Entresto, beta-remi cetera depending on echo results (2) Elevated troponin: Code(s): R79.89 - Other specified abnormal findings of blood chemistry Status: Acute Assessment and Plan: Mildly elevated troponin but flat, no chest pain to suggest CAD but at some point need an ischemia evaluation. (3) Acute kidney injury: Code(s): N17.9 - Acute kidney failure, unspecified Status: Acute Assessment and Plan: Renal function is worse since he was seen in January -- Daily BMP (4) Borderline hypertension: Code(s): R03.0 - Elevated blood-pressure reading, without diagnosis of hypertension Status: Acute Assessment and Plan: blood pressure has been low/ normal here. (5) Borderline diabetes: Code(s): R73.03 - Prediabetes Status: Acute Assessment and Plan: Blood sugars have been normal here. History of Present Illness History of Present Illness Consult date/time: 04/24/23 10:29 Reason For Visit: CHF, elevated troponin Narrative: Hakeem De Leon is 63-year-old male whom I was asked to see at the request Dr. Telles for my advice and opinion regarding new onset CHF, in consultation. Mr. De Leon originally presented to the emergency room on 02/10/2023 with 1-2 months of swelling and shortness of breath, and diagnosed as having new onset CHF. His proBNP was 4500. chest x-ray showed bilateral perihilar interstitial infiltrates. He declined admission and was discharged with furosemide 20 mg daily. he followed up with his primary care doctor, Dr. Dariela Claros in [facility], who continued furosemide at 40 mg a day and added potassium. Echo was planned but has not yet been scheduled.In addition the patient was having some bloating and gas and underwent a GI evaluation, was found to have gastric ulcers and was positive for H pylori is being treated for that. The pt never got better, qnd is having progressive problems with MOISE. He must stop several times on his walk through the parking lot and through the [employer] where he works to catch his breath. He is having PND, orthopnea, cough, lower extremity edema up to his knees and fatigue. He returned to the emergency room yesterday and found to be in CHF. He has been started on IV furosemide. No chest pain or palpitations, no dizziness.History of borderline hypertension and diabetes. No murmurs, no recent viral infections or vaccinations, no family history of heart disease, nonsmoker. No drug use, minimal alcohol use. He has been taking ibuprofen 800 mg t.i.d. off and on for hip pain. His proBNP was 6000, troponin 0.05, 0 point 049, 0.048. Creatinine is now up to 1.5, and was 1.2 in January. Chest x-ray reported a possible small layering pleural effusion. On my personal review I think is cardiomegaly mild CHF. EKG shows sinus rhythm with APCs, low voltage, PVC, poor R-wave progression , personally reviewed. CTA showed no PE, mild pulmonary edema, small right effusion, and an adrenal adenoma. Review of Systems Constitutional: Constitutional: Reports fatigue, Denies fever(s) and Reports lethargy Eyes: Eyes: Reports no addit
--- NOTE | 2023-04-24 14:00 | PM.IMPN ---
Progress Note: A&P Assessment and Plan (1) Acute exacerbation of CHF (congestive heart failure): Code(s): I50.9 - Heart failure, unspecified Status: Acute Assessment and Plan: Continue IV diuresis, check echo Daily BMP, strict I&Os, daily weights Cardiology consult placed and appreciate Continue aspirin 81 mg daily Check lipid panel, A1c Echo still pending, discharge when okay with Cardiology, likely tomorrow after another day of IV diuresis on oral diuretics (2) Elevated troponin: Code(s): R79.89 - Other specified abnormal findings of blood chemistry Status: Acute Assessment and Plan: Do not suspect acute coronary syndrome, flattened troponin curve, non acute ECG Plan DVT prophylaxis with lovenox GI prophylaxis not indicated Code status full code Subjective Date/time seen: 04/24/23 14:00 Interval history: No overnight events noted. No chest pain or shortness of breath. No nausea, vomiting or diarrhea. No fevers or chills. Review of Systems Review of Systems: 12 point review of systems was assessed and was negative except as noted in the HPI Exam Narrative: General: No acute distress, alert and oriented per baseline HEENT: Atraumatic, normocephalic, mucous membranes moist CV: Regular rate and rhythm, S1, S2 Lungs: Clear to auscultation bilaterally, no rales or crackles noted, no wheezes, good air entry Abdomen: Soft, nontender, nondistended Extremities: Normal to inspection, bilateral lower extremity trace pitting edema Skin: No rashes noted, no lesions or wounds seen Psych: Euthymic, normal affect Objective Data Vital Signs Vital Signs: Vital Signs - 24 hr 04/23/23 16:00 04/23/23 21:25 04/23/23 20:00 Temperature 97.7 F Pulse Rate 83 84 Respiratory Rate 18 Blood Pressure 107/73 Pulse Oximetry 100 Oxygen Delivery Room Air 04/23/23 20:00 04/24/23 00:00 04/24/23 04:00 Temperature Pulse Rate 82 84 84 Respiratory Rate Blood Pressure Pulse Oximetry Oxygen Delivery 04/24/23 06:00 04/24/23 08:00 04/24/23 08:00 Temperature 97.1 F L Pulse Rate 84 80 Respiratory Rate 18 Blood Pressure 121/87 Pulse Oximetry 99 Oxygen Delivery Room Air Intake/Output Intake/Output: Intake & Output 12/0204/22/23 04/23/23 04/24/23 23:59 23:59 23:59 23:59 Intake Total 670 850 Balance 670 850 Meds/Results Medications: Active Medications Generic Name Dose Route Start Last Admin Trade Name Freq PRN Reason Stop Dose Admin Acetaminophen 1,000 mg 04/23/23 16:08 Acetaminophen 500 Mg Tablet BY MOUTH DAILY PRN Pain, Mild Aspirin 81 mg 04/23/23 08:00 04/24/23 09:12 Aspirin 81 Mg Chewable Tablet PO 81 mg DAILY@0800 ANN Administration Benzocaine 1 lozenge 04/23/23 21:13 04/24/23 05:01 Benzocaine/Menthol (*Bkc) 18 Ea Lozenge PO 1 lozenge PRN PRN Administration Sore Throat Empagliflozin 10 mg 04/25/23 09:00 Empagliflozin 10 Mg Tablet PO DAILY [facility] Enoxaparin Sodium 40 mg 04/23/23 16:25 04/24/23 09:13 Enoxaparin 40 Mg/0.4 Ml Syringe SUB-Q 40 mg DAILY ANN Administration Furosemide 40 mg 04/23/23 09:00 04/24/23 09:12 Furosemide Inj 40 Mg/4 Ml Vial IV PUSH 40 mg Q12HR ANN Administration Pantoprazole Sodium 40 mg 04/24/23 17:00 Pantoprazole 40 Mg Tablet PO BID ANN Perflutren Lipid Microsphere 0 ml 04/23/23 01:38 Perflutren Lipid Microspheres 1.5 Ml Vial Diluted To 10 Ml Total Volume IV PUSH 04/26/23 01:39 ONCE PRN adequate visualization Protocol Potassium Chloride 10 meq 04/24/23 17:00 Potassium Chloride 10 Meq Er Tablet PO BIDWM [facility] Spironolactone 25 mg 04/25/23 09:00 Spironolactone 25 Mg Tablet PO QAM [facility] Radiology Results: ITS Impressions Chest X-Ray 04/23/23 05:43 Impression: Possible small layering left pleural effusion. Chest CTA 12
[2023-04-24] MEDS: PANTOPRAZOLE 40 MG TABLET PO (17:27)
[2023-04-24] MEDS: POTASSIUM CHLORIDE 10 MEQ ER TABLET PO (17:27)
[2023-04-25] VITALS (9 sets, daily range): BP systolic 103–107; BP diastolic 68–87; PULSE 80–96; RESP 16; TEMP 36.4–37; O2SAT 92–99
--- NOTE | 2023-04-25 | ECHO_ITS ---
Transthoracic Echo Report [facility] [address] [place] [address] Patient Info Name: Hakeem De Leon Age: 63 years : 1960 Gender: Male Ht: 72 in Wt: 117 lbs BSA: 1.62 m? HR: 102 bpm Heart Rhythm: Indeterminant Exam Date: 04/25/2023 1:25 PM Admit Date: 04/23/2023 Exam Location: Echo Lab Patient Status: Inpatient Exam Type: CA echo limited Technical Quality: Good Tool And Die Maker/Designer: Fanny Henson RDCS Ordering Physician: Chel Hess MD Attending Provider: Karma Todd DO Referring Physician: Jimena WEINSTEIN; Study Info Indications Code Description GLS AND MR Procedure(s) Limited two-dimensional transthoracic echocardiogram is performed. Summary 1. Limited echo study to evaluate in the mitral regurgitation more detail, and left ventricular strain. 2. Normal left ventricular size and thickness with mild global hypokinesis. Estimated ejection fraction is 45%. 3. Left ventricular global longitudinal strain diminished at -10%. (No bullseye could be done due to the pt's ectopy.). 4. Mild right ventricular enlargement and hypokinesis. 5. Mild eccentric aortic insufficiency. 6. Moderate left atrial enlargement. 7. Mild right atrial enlargement. 8. Thickened mitral valve. Possible slight prolapse of the tip of the posterior leaflet. Significant eccentric posteriorly directed mitral regurgitation seen, moderate to severe. (No PISA or pulmonary vein doppler done for better quantification.). 9. Probable sinus rhythm. Left Ventricle Left ventricular chamber dimension is normal. Left ventricular systolic function is mildly reduced, estimated at 45-50%. There is no increased left ventricular wall thickness. Left ventricular septal wall motion is normal. The left ventricular diastolic function is indeterminate. Global longitudinal strain is severely elevated at -10 %. Right Ventricle Right ventricular chamber dimension is mildly enlarged. Right ventricular systolic function is reduced. Left Atria Left atrial chamber dimension is moderately enlarged. Right Atria Right atrial chamber dimension is mildly enlarged. Aortic Valve The aortic valve is trileaflet. There is no aortic valve sclerosis. There is no aortic valve stenosis. There is mild aortic valve regurgitation. Mitral Valve The mitral valve has thickened leaflets. There is no mitral valve stenosis. There is moderate to severe mitral valve regurgitation. Tricuspid Valve The tricuspid valve leaflets are not well visualized. There is no significant tricuspid valve stenosis. There is no tricuspid valve regurgitation. No pulmonary hypertension, estimated pulmonary arterial systolic pressure is Empty. Pulmonic Valve The pulmonic valve is not well visualized. There is no pulmonic valve stenosis. There is no pulmonic regurgitation. Aorta The aortic root size at the sinus of Valsalva is not well visualized. The prox ascending aorta size is normal. Inferior Vena Cava Normal inferior vena cava with >50% collapse upon inspiration consistent with Empty right atrial pressure, Empty. Pericardium/Pleural The pericardium appears normal. There is no pericardial effusion. Mitral Valve Name Value Normal Name Value Normal MV Regurgitation Doppler MR Peak Gradient 59 mmHg Report Signatures Electronically signed by Chel Hess on 2022 16 : 41 MTDD
[2023-04-25 06:47] LABS: Basophils Absolute Auto 0.1 K/mm3 (0.0-0.1); Basophils Percent Auto 0.8 % (0.2-1.2); Eosinophils Absolute Auto 0.3 K/mm3 (0-0.3); Eosinophils Percent Auto 4.1 % (0-4.4); Hematocrit 29.4 % (42.0-52.0); Hemoglobin 8.6 g/dL (14.0-18.0); Immature Granulocyte Absolute 0.01 K/mm3 (0.00-0.031); Immature Granulocyte Percent A 0.2 % (0-0.5); Lymphocytes Absolute Auto 1.86 K/mm3 (0.9-3.2); Lymphocytes Percent Auto 30.3 % (18.3-44.2); Mean Corpuscular HGB Conc 29.3 g/dl (32-36); Mean Corpuscular Hemoglobin 23.9 pg (26-34); Mean Corpuscular Volume 81.7 fl (80-100); Mean Platelet Volume 10.7 fl (7.4-10.4); Monocytes Absolute Auto 0.6 K/mm3 (0.1-0.6); Monocytes Percent Auto 9.6 % (2.6-8.5); Neutrophils Absolute Auto 3.4 K/mm3 (1.3-6.7); Platelet Count Result 306 k/mm3 (150-375); Red Cell Distribution Width 16.6 % (11.5-14.5); White Blood Count 6.1 K/mm3 (4.5-10.0)
[2023-04-25 06:56] LABS: Alanine Aminotransferase 40 U/L (6-50); Albumin Level 3.1 g/dL (3.5-5.1); Alkaline Phosphatase 74 U/L (38-126); Anion Gap 8 mmol/L (8-16); Aspartate Amino Transferase 28 U/L (17-59); Bilirubin,Total 0.8 mg/dL (0.2-1.3); Blood Urea Nitrogen 16 mg/dL (9-20); Calcium 8.3 mg/dL (8.4-10.2); Carbon Dioxide 29 mmol/L (22-30); Chloride 99 mmol/L (98-107); Estimated CRCL calculation 58 ml/min; Estimated Glomerular Filt Rate > 60; Glucose 128 mg/dL (65-110); Potassium 3.5 mmol/L (3.4-5.0); Sodium 136 mmol/L (137-145)
--- NOTE | 2023-04-25 08:03 | PM.PNCARD ---
Progress Note: A&P Assessment and Plan (1) Acute combined systolic and diastolic congestive heart failure: Code(s): I50.41 - Acute combined systolic (congestive) and diastolic (congestive) heart failure Status: Acute Assessment and Plan: Patient presents with acute on chronic CHF,? initially diagnosed in January.? ?Still volume overloaded. -- continue IV Lasix? 40 mg IV push b.i.d. --Added potassium for hypokalemia -- daily BMP --discontinued ibuprofen --Maybe home tmr or Sunday? (2) Cardiomyopathy: Code(s): I42.9 - Cardiomyopathy, unspecified Status: Acute Assessment and Plan: Echo shows mild systolic and diastolic LV dysfunction.? Wondering if the pt's eccentric mitral regurgitaion is worse than what we saw on the Echo. Also he has low voltage on his EKG so we may need to consider amyloidosis in the differential, though no LVH or other features c/w amyloid. ? Counseled patient extensively about CHF, signs and symptoms, treatment etc. He's not happy that he may need to take medications for the rest of my life. Hopes that exercise and Heart Healthy eating will improve thins. They certainly contribute to well-being, but medical management (and fixing anything fixable) is extremely important to prevent a relapse. -- added Jardiance --Add Entresto, beta-remi but try to keep meds simplified for compliance --Requested more imaging of the mitral regurgitation, and also assessment of global longitudinal strain by Echo. May need imaging by other modalities --Lexiscan tmr to eval for underlying CAD, to complete evaluation. (3) Mitral regurgitation: Code(s): I34.0 - Nonrheumatic mitral (valve) insufficiency Status: Acute Assessment and Plan: Mild MR noted on echo, but highly eccentric, so may be underestimated. Has an MR murmur but no LV enlargement that would be consistent with significant MR. (4) Elevated troponin: Code(s): R79.89 - Other specified abnormal findings of blood chemistry Status: Acute Assessment and Plan: Secondary to CHF (5) Borderline hypertension: Code(s): R03.0 - Elevated blood-pressure reading, without diagnosis of hypertension Status: Acute Assessment and Plan: BP stable (6) Borderline diabetes: Code(s): R73.03 - Prediabetes Status: Acute Assessment and Plan: A1C was 5.1, good. (7) Microcytic anemia: Code(s): D50.9 - Iron deficiency anemia, unspecified Status: Acute Assessment and Plan: Mild decline in H&H noted, microcytic. --Check iron level (8) Acute kidney injury: Code(s): N17.9 - Acute kidney failure, unspecified Status: Acute Assessment and Plan: Creat improving. Subjective Date/time seen: 04/25/23 08:03 Interval history: Follow-up for new onset of CHF. Initially presented in January 20 and started on diuretic. Returned, feeling no better, on 04/22/2023. Admitted and being treated for CHF. ProBNP 6000. Troponin 0.0 5. Echo showed mild global hypokinesis, EF 45-50% with mild eccentric mitral regurgitation. Date of Service 04/25/2023: Diuresing and feeling ?200% better. ? Remains on room air. blood pressure borderline low at times. Potassium borderline low, microcytic anemia noted. Creatinine improving, was 1.5 now 1.3. Echo EF 45-50%, diast dysfxn, mild eccentric MR Review of Systems Review of Systems: Still some swelling, no chest pain, breathing is improved, no dizziness, no bleeding Exam Const: General: cooperative, healthy appearing and comfortable; No confusion Orientation/consciousness: oriented to person, patient oriented x3 and No confusion HENMT: Mouth: Yes moist mucous membranes Eyes: General: appearance normal, both eyes and all related structures Neck: Neck: supple and no JVD Resp: Effort & Inspection: normal respiratory effort Auscultation: rales Other: Rales 1
[2023-04-25] MEDS: POTASSIUM CHLORIDE 10 MEQ ER TABLET PO (09:01)
[2023-04-25] MEDS: FUROSEMIDE INJ 40 MG/4 ML VIAL IV PUSH ×2 (09:01→20:49)
[2023-04-25] MEDS: ASPIRIN 81 MG CHEWABLE TABLET PO (09:01)
[2023-04-25] MEDS: SPIRONOLACTONE 25 MG TABLET PO (09:01)
[2023-04-25] MEDS: PANTOPRAZOLE 40 MG TABLET PO ×2 (09:01→18:37)
[2023-04-25] MEDS: EMPAGLIFLOZIN 10 MG TABLET PO (09:02)
[2023-04-25] MEDS: ENOXAPARIN 40 MG/0.4 ML SYRINGE SUB-Q (09:02)
--- NOTE | 2023-04-25 13:44 | PCDIET ---
Nutrition consult for heart healthy diet. See Nutritional Teaching Intervention. Thank you for the consult.
--- NOTE | 2023-04-25 16:23 | PM.IMPN ---
Progress Note: A&P Assessment and Plan (1) Acute exacerbation of CHF (congestive heart failure): Code(s): I50.9 - Heart failure, unspecified Status: Acute Assessment and Plan: Patient presents with shortness of breath. CTA of the chest shows mild patchy ground-glass opacities consistent with pulmonary edema. He has small right pleural effusion. BNP was 6000. Echocardiogram shows mild global hypokinesis with EF of 45-50% and grade 2 diastolic dysfunction. He has bilateral he atrial enlargement. Mild MR and mild pulmonary hypertension noted. He did have elevated right atrial pressure at the time of the echo. Patient has been started on IV Lasix. I&Os are inaccurate. Daily weights show possible 2 kg weight loss. Cardiology consult placed and appreciate their input Continue aspirin 81 mg daily Empagliflozin, Entresto and Toprol-XL added. Continue IV Lasix. (2) Elevated troponin: Code(s): R79.89 - Other specified abnormal findings of blood chemistry Status: Acute Assessment and Plan: Troponin mildly elevated at 0.05 but flat. EKG showed normal sinus rhythm with PVCs, LAD and low voltage with nonspecific T-wave changes. No change from prior EKG. Echocardiogram as mentioned above. Cardiology following. Lexiscan nuclear stress test planned for tomorrow. (3) Anemia: Code(s): D64.9 - Anemia, unspecified Status: Acute Assessment and Plan: Hemoglobin was 10.5 in January. No other values to compare. Hemoglobin 9.2 on admission has dropped to the 8 range and has remained stable. MCV normal. Agree with iron studies. Will check B12 and folate levels as well. Check stool guaiac. (4) Adrenal nodule: Code(s): E27.8 - Other specified disorders of adrenal gland Status: Acute Assessment and Plan: CTA of the chest shows images through the upper abdomen revealing a 2.8 cm right adrenal nodule which is most likely adenoma but indeterminate based on Hounsfield units. Follow-up nonemergent MRI should be considered. Plan DVT prophylaxis with lovenox GI prophylaxis not indicated Code status full code Subjective Date/time seen: 04/25/23 16:23 Interval history: 63yo male here for shortness of breath found to have new onset of CHF. Initially presented in January 20 and started on diuretic. Returned, feeling no better, on 04/22/2023. Admitted and being treated for CHF. ProBNP 6000. Troponin 0.0 5. Echo showed mild global hypokinesis, EF 45-50% with mild eccentric mitral regurgitation. Assuming care. Chart reviewed. Patient has a cough when he lies flat. Cough is productive clear sputum. He does have nasal congestion and postnasal drainage. A cough prevents him from sleeping well. No chest pain. He did sleep in the chair earlier today and noted his legs are more edematous when he woke up. Exam Narrative: AF 98.6 107/68 80 16 99% ra Gen - NARD Chest - CTA bilaterally, nml RR CV - RRR S1/S2. Tele showing occasional PVCs. Abd - Soft, NT/ND, Positive BS Ext - 1+ pedal edema Psych - Nml mood and affect Skin - Warm and dry Objective Data Vital Signs Vital Signs: Vital Signs - 24 hr 04/24/23 20:20 04/24/23 19:57 04/24/23 20:29 Temperature 97.8 F Pulse Rate 68 111 H Respiratory Rate 18 Blood Pressure 114/86 Pulse Oximetry 100 98 Oxygen Delivery Room Air 04/25/23 00:00 04/25/23 04:28 04/25/23 04:00 Temperature 97.5 F L Pulse Rate 85 96 86 Respiratory Rate 16 Blood Pressure 104/87 Pulse Oximetry 97 Oxygen Delivery 04/25/23 08:00 04/25/23 08:00 04/25/23 12:00 Temperature Pulse Rate 96 96 90 Respiratory Rate 16 Blood Pressure Pulse Oximetry 97 Oxygen Delivery Room Air 04/25/23 14:00 Temperature 98.6 F Pulse Rate 80 Respiratory Rate 16 Blood Pressure 107/68 Pulse Oximetry 99 Oxygen Delivery Intake/Output Intake/Output: Intake & Output 04/22/23 04/23/23 12
[2023-04-25] MEDS: POTASSIUM CHLORIDE 20 MEQ ER TABLET PO (18:37)
[2023-04-25] MEDS: SACUBITRIL/VALSARTAN 24-26 MG TABLET 1 TAB PO (20:49)
[2023-04-26] VITALS (19 sets, daily range): BP systolic 95–125; BP diastolic 67–104; PULSE 71–147; RESP 14–33; TEMP 36.4–36.8; O2SAT 92–100
[2023-04-26 02:14] LABS: IFOB Positive Control Positive; Immunochemical Fecal Occult Bl Negative (N)
--- NOTE | 2023-04-26 03:21 | PC.NURSE ---
pt on tele and had 16 beat run of vtach. RN notified provider, and magnesium lab added to morning labs
[2023-04-26 06:59] LABS: Basophils Absolute Auto 0.1 K/mm3 (0.0-0.1); Eosinophils Absolute Auto 0.2 K/mm3 (0-0.3); Eosinophils Percent Auto 4.5 % (0-4.4); Hemoglobin 9.9 g/dL (14.0-18.0); Immature Granulocyte Absolute 0.01 K/mm3 (0.00-0.031); Immature Granulocyte Percent A 0.2 % (0-0.5); Lymphocytes Percent Auto 35.2 % (18.3-44.2); Mean Corpuscular Hemoglobin 24.1 pg (26-34); Mean Corpuscular Volume 80.5 fl (80-100); Mean Platelet Volume 10.2 fl (7.4-10.4); Monocytes Absolute Auto 0.6 K/mm3 (0.1-0.6); Monocytes Percent Auto 10.8 % (2.6-8.5); Neutrophils Absolute Auto 2.5 K/mm3 (1.3-6.7); Neutrophils Percent Auto 48.3 % (45.5-73.1); Platelet Count Result 347 k/mm3 (150-375); Red Cell Distribution Width 16.7 % (11.5-14.5); White Blood Count 5.1 K/mm3 (4.5-10.0)
[2023-04-26 07:49] LABS: Alanine Aminotransferase 40 U/L (6-50); Albumin Level 3.6 g/dL (3.5-5.1); Alkaline Phosphatase 85 U/L (38-126); Anion Gap 5 mmol/L (8-16); Aspartate Amino Transferase 30 U/L (17-59); Blood Urea Nitrogen 16 mg/dL (9-20); Calcium 8.9 mg/dL (8.4-10.2); Carbon Dioxide 30 mmol/L (22-30); Chloride 101 mmol/L (98-107); Estimated CRCL calculation 54 ml/min; Estimated Glomerular Filt Rate > 60; Glucose 91 mg/dL (65-110); Potassium 4.3 mmol/L (3.4-5.0); Sodium 136 mmol/L (137-145)
[2023-04-26 08:30] LABS: Iron 32 ug/dL (49-181)
[2023-04-26 08:33] LABS: Magnesium 1.9 mg/dL (1.6-2.3)
[2023-04-26 08:43] LABS: Percent Iron Saturation 8 % (20-50)
[2023-04-26] MEDS: ENOXAPARIN 40 MG/0.4 ML SYRINGE SUB-Q (08:48)
[2023-04-26] MEDS: ASPIRIN 81 MG CHEWABLE TABLET PO (08:48)
[2023-04-26] MEDS: POTASSIUM CHLORIDE 20 MEQ ER TABLET PO ×2 (08:48→18:02)
[2023-04-26] MEDS: FUROSEMIDE INJ 40 MG/4 ML VIAL IV PUSH (08:48)
[2023-04-26] MEDS: EMPAGLIFLOZIN 10 MG TABLET PO (08:49)
[2023-04-26] MEDS: SACUBITRIL/VALSARTAN 24-26 MG TABLET 1 TAB PO ×2 (08:49→21:21)
[2023-04-26] MEDS: PANTOPRAZOLE 40 MG TABLET PO ×2 (08:49→18:03)
[2023-04-26] MEDS: METOPROLOL SUCCINATE EXT REL 25 MG TABCR PO (08:49)
[2023-04-26 09:36] LABS: Folic Acid 10.4 ng/mL (2.76->20); Vitamin B12 > 1000.0 pg/mL (239-931)
--- NOTE | 2023-04-26 12:45 | WPDMODSED ---
Moderate Sedation Note-Pt Data Patient Data Diagnosis: New onset of CHF, significant mitral regurgitation by echo Present Complaint: New onset of CHF. Mild LV dysfunction. Mitral regurgitation which may be severe and will be evaluated with a transesophageal echo. Procedure to be performed/Plan: Conscious sedation Transesophageal echo Allergies Allergy/AdvReac Type Severity Reaction Status Date / Time No Known Allergies Allergy Verified 04/23/23 12:59 Home Medications Medication Instructions Recorded Confirmed Type Tylenol 1,000 mg BYMOUTH DAILY PRN Pain, 04/23/23 04/23/23 History Mild furosemide 20 mg tablet (Lasix) 40 mg PO DAILY 04/23/23 04/23/23 History ibuprofen 800 mg tablet 800 mg PO TIDWMEAL PRN Pain, Mild 04/23/23 04/23/23 History omeprazole 40 mg-sodium 1 cap PO DAILY 04/23/23 04/23/23 History bicarbonate 1.1 gram capsule potassium chloride 10 mEq 10 meq PO DAILY 04/23/23 04/23/23 History capsule,extended release Current Medications: Active Medications Acetaminophen (Acetaminophen 500 Mg Tablet) 1,000 mg BY MOUTH DAILY PRN PRN Reason: Pain, Mild Aspirin (Aspirin 81 Mg Chewable Tablet) 81 mg PO DAILY@0800 [facility] Last Admin: 04/26/23 08:48 Dose: 81 mg Benzocaine (Benzocaine/Menthol (*Bkc) 18 Ea Lozenge) 1 lozenge PO PRN PRN PRN Reason: Sore Throat Last Admin: 04/24/23 05:01 Dose: 1 lozenge Empagliflozin (Empagliflozin 10 Mg Tablet) 10 mg PO DAILY [facility] Last Admin: 04/26/23 08:49 Dose: 10 mg Enoxaparin Sodium (Enoxaparin 40 Mg/0.4 Ml Syringe) 40 mg SUB-Q DAILY [facility] Last Admin: 04/26/23 08:48 Dose: 40 mg Furosemide (Furosemide Inj 40 Mg/4 Ml Vial) 40 mg IV PUSH Q12HR [facility] Last Admin: 04/26/23 08:48 Dose: 40 mg Metoprolol Succinate (Metoprolol Succinate Ext Rel 25 Mg Tabcr) 25 mg PO QAM [facility] Last Admin: 04/26/23 08:49 Dose: 25 mg Pantoprazole Sodium (Pantoprazole 40 Mg Tablet) 40 mg PO BID [facility] Last Admin: 04/26/23 08:49 Dose: 40 mg Perflutren Lipid Microsphere (Perflutren Lipid Microspheres 1.5 Ml Vial Diluted To 10 Ml Total Volume) 0 ml IV PUSH ONCE PRN; Protocol PRN Reason: adequate visualization Stop: 04/28/23 08:05 Potassium Chloride (Potassium Chloride 20 Meq Er Tablet) 20 meq PO BIDWM [facility] Last Admin: 04/26/23 08:48 Dose: 20 meq Sacubitril/Valsartan (Sacubitril/Valsartan 24-26 Mg Tablet) 1 tab PO Q12HR [facility] Last Admin: 04/26/23 08:49 Dose: 1 tab Sedation/Anesthesia: No previous sedation/anesthesia problems (including family history). [facility] Past Medical History Medical History (Updated 04/25/23 @ 16:35 by Andrea Gonzalez MD) Borderline diabetes Borderline hypertension Cardiomyopathy Healthy adult male Microcytic anemia Mitral regurgitation Surgical History Surgical History No pertinent past surgical history Family History Family History (Updated 04/24/23 @ 11:11 by Chel Hess MD) Mother Diabetes mellitus Father , of a viral infection age 47 which weakened his vital organs Viral infection Sibling Diabetes mellitus Hypertension Sibling Hypertension Social History Social History (Updated 04/24/23 @ 11:11 by Chel Hess MD) Social History: , no biological children but has step children. Works at the [employer]. Smoking status: Never smoker Alcohol intake: current Drinks per week: 1 Substance use: never Lack of Transportation: No Lack of Food: Never True Current Housing: I Have Housing Concerned About Future Housing: No Difficulty Paying Gas/Electric Bills: No Difficulty Paying for Meds: No Currently Unemployed: No Education: Don't Know Difficulty w/ Childcare or Family Care: No Gender identity (if verbalized by the patient): Male Spiritual care concerns: No Mod Sed Physical Exam Physical Exam Pre Procedural Exam: Normal: Appearance, Eyes, Ears, Nose, Neck, Throat, Airway,
--- NOTE | 2023-04-26 13:00 | PM.IMPN ---
Progress Note: A&P Assessment and Plan (1) Acute exacerbation of CHF (congestive heart failure): Code(s): I50.9 - Heart failure, unspecified Status: Acute Assessment and Plan: Patient presents with shortness of breath. CTA of the chest shows mild patchy ground-glass opacities consistent with pulmonary edema. He has small right pleural effusion. BNP was 6000. Echo shows mild global hypokinesis with EF of 45-50% and grade 2 diastolic dysfunction. He has bilateral he atrial enlargement. Mild MR and mild pulmonary hypertension noted. He did have elevated right atrial pressure at the time of the echo. Patient has been started on IV Lasix. I&Os are inaccurate. Daily weights show possible 2 kg weight loss. Cardiology consulted and appreciate their input Lexiscan Stress test was planned for today but now patient having ADELITA to further evaluate the MV Continue aspirin, Empagliflozin, Entresto and Toprol-XL Continue IV Lasix. (2) Elevated troponin: Code(s): R79.89 - Other specified abnormal findings of blood chemistry Status: Acute Assessment and Plan: Troponin mildly elevated at 0.05 but flat. EKG showed normal sinus rhythm with PVCs, LAD and low voltage with nonspecific T-wave changes. No change from prior EKG. Echocardiogram as mentioned above. Cardiology following. Lexiscan nuclear stress test on hold (3) Anemia: Code(s): D64.9 - Anemia, unspecified Status: Acute Assessment and Plan: Hemoglobin was 10.5 in January. No other values to compare. No melana or hematochezia. He had a colonoscopy 6 yrs that was negative. Recent EGD found small ulcers and was Hpylori positive. He completed abx course and is on omeprazole now. Hemoglobin 9.2 on admission has dropped to the 8 range MCV normal. B12 and folate levels are normal. Iron low with nml TIBC and TSAT at 8%. No ferritin. Iron deficiency probably related to ulcers. Continue PPI and add iron. (4) Adrenal nodule: Code(s): E27.8 - Other specified disorders of adrenal gland Status: Acute Assessment and Plan: CTA of the chest shows images through the upper abdomen revealing a 2.8 cm right adrenal nodule which is most likely adenoma but indeterminate based on Hounsfield units. Follow-up nonemergent MRI should be considered. Biochemical workup pending (5) Mitral regurgitation: Code(s): I34.0 - Nonrheumatic mitral (valve) insufficiency Status: Acute Assessment and Plan: Echo shows mild MR but may be an underestimation. Lexiscan Stress test was planned for today but now patient having ADELITA to further evaluate the MV Follow up on results Plan DVT prophylaxis with lovenox GI prophylaxis not indicated Code status full code Subjective Date/time seen: 04/26/23 13:00 Interval history: 63yo male here for shortness of breath found to have new onset of CHF. Initially presented in January 20 and started on diuretic. Returned, feeling no better, on 04/22/2023. Admitted and being treated for CHF. ProBNP 6000. Troponin 0.0 5. Echo showed mild global hypokinesis, EF 45-50% with mild eccentric mitral regurgitation. No problems overnight. Cough productive of clear sputum. No CPoir SOB. Still with cough worse when lying down. No melana or hematochezia. He had a colonoscopy 6 yrs that was negative. Recently had EGD and found to have small ulcers and was Hpylori positive. He completed abx course and is on omeprazole now. Exam Narrative: AF 97.6 103/84 77 14 97% ra Gen - NARD Chest - CTA bilaterally, nml RR CV - Iregular Tele showing sinus arrhythmias Abd - Soft, NT/ND, Positive BS Ext - trace pedal edema Psych - Nml mood and affect Skin - Warm and dry Objective Data Vital Signs Vital Signs: Vital Signs - 24 hr 04/25/23 14:00 04/25/23 16:00 04/25/23 20:30 Temperature 98.6 F Pulse Rate 80 80 Respiratory Rate 16 Blood Pressure 107/68 Pulse O
--- NOTE | 2023-04-26 13:18 | WPDHPUPDATE1 ---
History and Physical Update Update Date/Time: 04/26/23 13:18 History and Physical has been reviewed, including an updated exam of the patient. There are NO changes in the patient's condition. Risks, benefits, and alternatives have been discussed and questions answered. Patient agrees to proceed with procedure.
--- NOTE | 2023-04-26 13:48 | PM.OP ---
Procedure Note - Brief Procedure Note - Brief Date of procedure: 04/26/23 CHF, elevated troponin Post-op diagnosis: Other (Cardiomyopathy, mitral regurgitation) Procedure performed: Conscious sedation Transesophageal Surgeon: Chel Hess MD Description of procedure: Uneventful transesophageal echo Urine output (mL): 2,850 Complications: No immediate complications Condition: Stable Disposition: Observation
--- NOTE | 2023-04-26 13:52 | P.PCNTEE_ITS ---
ADELITA TransEsophageal Echocardiogram Date of procedure: 04/26/23 Procedure Type: Transesophageal echo with conscious sedation Diagnosis: New onset of CHF, moderate to severe mitral regurgitation Indications: New onset of CHF, moderate to severe mitral regurgitation Image Quality: Good Findings: Conscious sedation: Assessment: The patient has no history of anesthesia problems. The patient's oropharynx is clear. The patient was deemed to be a good candidate for conscious sedation. The patient had continuous hemodynamic and oximetric monitoring during the procedure. Start time: 1:22 p.m. Completion time: 1:47 p.m. Total conscious sedation time: 25 minutes Medications Used: Versed 4 mg, fentanyl 125 mcg IV push Trained observer: David Anaya RN Outcome: The patient tolerated the procedure well with no complications. Procedure: After informed consent the patient had viscous lidocaine gargle and Hurricaine spray the hypopharynx. The patient had conscious sedation as described above. The transesophageal echo probe was introduced in the esophagus without difficulty. On 1st attempt there was invert intubation of the trachea; the probe was immediately removed. Other than coughing the patient had no untoward signs. After inserting the probe into the esophagus, imaging was obtained in multiplane views. The patient became somewhat agitated and tachycardic with heart rates running in the 140-150 range and required additional sedation, with improvement. Agitated saline was injected to evaluate for intracardiac shunting. The patient tolerated the procedure well with no complications. Findings: The left atrium was markedly enlarged. There is no thrombus present in the left atrium or left atrial appendage. The atrial septum appeared intact. Mitral valve revealed poor coopatation of the leaflets at the site of the regurgitation. There was a small area prolapse of either leaflet A2 or P2 in this area as well. The left ventricle had had normal size and thickness with moderate to moderately severe hypokinesis of all segments. The ejection fraction is estimated to be: 35-40 %. The aortic root and valve were normal. The ascending aorta, aortic arch and descending thoracic aorta were normal. The right atrium, tricuspid valve, right ventricle, pulmonic valve and pulmonic artery were all normal. There is no pericardial effusion. When agitated saline was injected intravenously there was no evidence of intracardiac shunting. Colorflow Doppler Findings: Color flow of the mitral valve revealed an eccentric jet which appeared to be moderate to severe in quality. Doppler of the pulmonary veins did not show any systolic flow reversal. There is trace aortic insufficiency and trace tricuspid regurgitation. Conclusions: Moderate to severe mitral regurgitation with an eccentric jet Poorly coapting mitral valve leaflet tips Small area of prolapse of the mitral valve Moderate to moderately severe left ventricular dysfunction Recommendation: Still not clear if the CHF and MR is primarily a valvular phenomenon or if the valve disease is secondary to LV dysfunction, although I suspect the former. Continue guideline directed medical therapy Reassess mitral regurgitation is outpatient when the patient is more compensated, perhaps with a cardiac MRI. If it appears moderate to moderately severe, consider valve repair OK for discharge.
[2023-04-26] MEDS: IRON SUCROSE COMPLEX 100 MG in SODIUM CHLORIDE 0.9% IV 50 ML 220 MG IVPB (15:30)
--- NOTE | 2023-04-26 17:31 | PM.PNCARD ---
Progress Note: A&P Assessment and Plan (1) Acute combined systolic and diastolic congestive heart failure: Code(s): I50.41 - Acute combined systolic (congestive) and diastolic (congestive) heart failure Status: Acute Assessment and Plan: Patient presents with acute on chronic CHF,? initially diagnosed in January.? Nearly euvolemic. Tolerating current medications; blood pressure somewhat soft but reasonable. --change furosemide to 20 mg daily. --discontinued ibuprofen --Maybe home or Sunday? (2) Cardiomyopathy: Code(s): I42.9 - Cardiomyopathy, unspecified Status: Acute Assessment and Plan: Echo shows mild systolic and diastolic LV dysfunction.? ADELITA showed worse LV dysfunction, although he was very tachycardic at the time. Unclear if this is idiopathic, viral, or idiopathic mitral regurgitation. Have not excluded amyloidosis but he does not have a lot of other features consistent with this entity. --continue Jardiance, Entresto, beta-remi, diuretic (3) Mitral regurgitation: Code(s): I34.0 - Nonrheumatic mitral (valve) insufficiency Status: Acute Assessment and Plan: Mitral regurgitation is very eccentric, thus difficult to quantitate. Has an MR murmur (not as prominent today) but no LV enlargement that would be consistent with significant chronic MR, no system flow reversal in the pulmonary veins by ADELITA (which would have been consistent with severe MR). Still unclear if this is primary or secondary MR. --continue to treat CHF and cardiomyopathy with guideline medical therapy --reassess mitral regurgitation in a few weeks once CHR has been treated (cardiac MRI? ) and if still significant consider mitral valve repair. (4) Elevated troponin: Code(s): R79.89 - Other specified abnormal findings of blood chemistry Status: Acute Assessment and Plan: Secondary to CHF (5) Borderline hypertension: Code(s): R03.0 - Elevated blood-pressure reading, without diagnosis of hypertension Status: Acute Assessment and Plan: BP stable (6) Borderline diabetes: Code(s): R73.03 - Prediabetes Status: Acute Assessment and Plan: A1C was 5.1, good. (7) Microcytic anemia: Code(s): D50.9 - Iron deficiency anemia, unspecified Status: Acute Assessment and Plan: Mild decline in H&H noted, microcytic. Iron level was low and the patient has been given IV iron. (8) Acute kidney injury: Code(s): N17.9 - Acute kidney failure, unspecified Status: Acute Assessment and Plan: Creat improving. Subjective Date/time seen: 04/26/23 17:31 Interval history: Follow-up for new onset of CHF. Initially presented in January 20 and started on diuretic. Returned, feeling no better, on 04/22/2023. Admitted and being treated for CHF. ProBNP 6000. Troponin 0.0 5. Echo showed mild global hypokinesis, EF 45-50% with mild eccentric mitral regurgitation. Date of Service 04/25/2023: Diuresing and feeling ?200% better. ? Remains on room air. blood pressure borderline low at times. Potassium borderline low, microcytic anemia noted. Creatinine improving, was 1.5 now 1.3. Echo EF 45-50%, diast dysfxn, mild eccentric MR Date of service 04/26/2023: Further imaging of the mitral valve showed an eccentric mitral valve jet that was moderate to severe in quality. ADELITA also shows the eccentric mitral regurgitation, again moderate to severe. Patient is doing well, up and about in his room with no shortness of breath or dizziness. Review of Systems Review of Systems: Still some swelling, no chest pain, breathing is improved, no dizziness, no bleeding Exam Const: General: cooperative, healthy appearing and comfortable; No confusion Orientation/consciousness: oriented to person, patient oriented x3 and No confusion HENMT: Mouth: Yes moist mucous membranes Eyes: Gener
[2023-04-26] MEDS: FLUTICASONE PROPIONATE 0.05% NA SPR 16 GM BTL (*BKC) 2 SPRAY NASAL (18:02)
[2023-04-27] VITALS (9 sets, daily range): BP systolic 100–108; BP diastolic 61–83; PULSE 77–94; RESP 16–24; TEMP 36.4–36.9; O2SAT 98–99
[2023-04-27 07:02] LABS: Basophils Absolute Auto 0.1 K/mm3 (0.0-0.1); Eosinophils Absolute Auto 0.2 K/mm3 (0-0.3); Eosinophils Percent Auto 3.3 % (0-4.4); Hematocrit 34.2 % (42.0-52.0); Immature Granulocyte Absolute 0.02 K/mm3 (0.00-0.031); Immature Granulocyte Percent A 0.3 % (0-0.5); Lymphocytes Absolute Auto 2.22 K/mm3 (0.9-3.2); Lymphocytes Percent Auto 31.9 % (18.3-44.2); Mean Corpuscular HGB Conc 29.2 g/dl (32-36); Mean Corpuscular Hemoglobin 23.7 pg (26-34); Mean Platelet Volume 10.5 fl (7.4-10.4); Monocytes Absolute Auto 0.7 K/mm3 (0.1-0.6); Monocytes Percent Auto 10.2 % (2.6-8.5); Neutrophils Absolute Auto 3.7 K/mm3 (1.3-6.7); Neutrophils Percent Auto 53.3 % (45.5-73.1); Platelet Count Result 362 k/mm3 (150-375); Red Blood Count 4.22 M/mm3 (4.6-6.20); Red Cell Distribution Width 16.7 % (11.5-14.5)
[2023-04-27 07:19] LABS: Alanine Aminotransferase 42 U/L (6-50); Albumin Level 3.4 g/dL (3.5-5.1); Alkaline Phosphatase 85 U/L (38-126); Anion Gap 9 mmol/L (8-16); Aspartate Amino Transferase 34 U/L (17-59); Bilirubin,Total 0.7 mg/dL (0.2-1.3); Blood Urea Nitrogen 15 mg/dL (9-20); Calcium 8.5 mg/dL (8.4-10.2); Carbon Dioxide 23 mmol/L (22-30); Chloride 103 mmol/L (98-107); Estimated CRCL calculation 58 ml/min; Estimated Glomerular Filt Rate > 60; Glucose 91 mg/dL (65-110); Potassium 4.4 mmol/L (3.4-5.0); Sodium 135 mmol/L (137-145)
[2023-04-27 07:56] LABS: Platelet Estimate Adequate (Adequate)
[2023-04-27 07:57] LABS: Anisocytosis 1+ (NORMAL); Ovalocytes 1+ (NORMAL); Schistocytes None Seen (NORMAL)
[2023-04-27] MEDS: IRON SUCROSE COMPLEX 100 MG in SODIUM CHLORIDE 0.9% IV 50 ML 220 MG IVPB (08:54)
[2023-04-27] MEDS: PANTOPRAZOLE 40 MG TABLET PO ×2 (08:54→17:31)
[2023-04-27] MEDS: SACUBITRIL/VALSARTAN 24-26 MG TABLET 1 TAB PO ×2 (08:54→20:26)
[2023-04-27] MEDS: EMPAGLIFLOZIN 10 MG TABLET PO (08:54)
[2023-04-27] MEDS: ASPIRIN 81 MG CHEWABLE TABLET PO (08:54)
[2023-04-27] MEDS: POTASSIUM CHLORIDE 20 MEQ ER TABLET PO ×2 (08:55→17:31)
[2023-04-27] MEDS: FUROSEMIDE 20 MG TABLET PO (08:55)
[2023-04-27] MEDS: METOPROLOL SUCCINATE EXT REL 25 MG TABCR PO (08:55)
[2023-04-27] MEDS: ENOXAPARIN 40 MG/0.4 ML SYRINGE SUB-Q (08:56)
[2023-04-27] MEDS: FERROUS SULFATE 325 MG TABLET DR PO (08:56)
--- NOTE | 2023-04-27 16:46 | PM.IMPN ---
Progress Note: A&P Assessment and Plan (1) Acute exacerbation of CHF (congestive heart failure): Code(s): I50.9 - Heart failure, unspecified Status: Acute Assessment and Plan: Patient presented with shortness of breath. CTA of the chest shows mild patchy ground-glass opacities consistent with pulmonary edema. He had a small right pleural effusion. BNP was 6000. Echo shows mild global hypokinesis with EF of 45-50% and grade 2 diastolic dysfunction. He has bilateral he atrial enlargement. Mild MR and mild pulmonary hypertension noted. He did have elevated right atrial pressure at the time of the echo. Patient was started on IV Lasix. Cardiology consulted and appreciate their input Continue aspirin, Empagliflozin, Entresto and Toprol-XL Continue IV Lasix. (2) Elevated troponin: Code(s): R79.89 - Other specified abnormal findings of blood chemistry Status: Acute Assessment and Plan: Troponin mildly elevated at 0.05 but flat. EKG showed normal sinus rhythm with PVCs, LAD and low voltage with nonspecific T-wave changes. No change from prior EKG. Echocardiogram as mentioned above. Cardiology following. Lexiscan nuclear stress test on hold (3) Anemia: Code(s): D64.9 - Anemia, unspecified Status: Acute Assessment and Plan: Hemoglobin was 10.5 in January. No other values to compare. No melana or hematochezia. He had a colonoscopy 6 yrs that was negative. Recent EGD found small ulcers and was Hpylori positive. He completed abx course and is on omeprazole now. Hemoglobin 9.2 on admission that dropped to the 8 range before improving to 10 MCV normal. B12 and folate levels are normal. Iron low with nml TIBC and TSAT at 8%. No ferritin. Stool guaiac negative. Iron deficiency probably related to ulcers. Continue PPI and iron. (4) Adrenal nodule: Code(s): E27.8 - Other specified disorders of adrenal gland Status: Acute Assessment and Plan: CTA of the chest shows images through the upper abdomen revealing a 2.8 cm right adrenal nodule which is most likely adenoma but indeterminate based on Hounsfield units. Follow-up nonemergent MRI should be considered. Biochemical workup pending (5) Mitral regurgitation: Code(s): I34.0 - Nonrheumatic mitral (valve) insufficiency Status: Acute Assessment and Plan: Echo shows mild MR but may be an underestimation. Lexiscan Stress test was planned but changed to ADELITA to further evaluate the MV ADELITA showing moderate-severe MR, MVP and mod-severe LV dysfunction with EF 35-40% (6) Atrial fibrillation: Code(s): I48.91 - Unspecified atrial fibrillation Status: Acute Assessment and Plan: Tele showing episodes of probable AFib. Discussed with Cardiology who recommended anticoagulation Stool guaiac negative Start anticoag - use Xarelto despite having MR and will clarify with Cards computer security coordinator to arrange to see if patient can afford this. Plan DVT prophylaxis with Xarelto GI prophylaxis not indicated Code status full code Subjective Date/time seen: 04/27/23 16:46 Interval history: 63yo male here for shortness of breath found to have new onset of CHF. Initially presented in January 20 and started on diuretic. Returned, feeling no better, on 04/22/2023. Admitted and being treated for CHF. ProBNP 6000. Troponin 0.0 5. Echo showed mild global hypokinesis, EF 45-50% with mild eccentric mitral regurgitation. Feeling well. No CP or SOB. No MOISE walking to the BR. Exam Narrative: AF 98.4 107/75 94 16 98% ra Gen - NARD Chest - CTA bilaterally, nml RR CV - RRR S1/S2. Tele showing episodes of irregular, narrow complex rhythms Abd - Soft, NT/ND, Positive BS Ext - trace pedal edema Psych - Nml mood and affect Skin - Warm and dry Objective Data Vital Signs Vital Signs: Vital Signs - 24 hr 04/26/23 22:00 04/26/23 20:45 04/26/23 20:00 Tem
[2023-04-27] MEDS: FLUTICASONE PROPIONATE 0.05% NA SPR 16 GM BTL (*BKC) 2 SPRAY NASAL (17:31)
[2023-04-28] VITALS (8 sets, daily range): BP systolic 104–105; BP diastolic 75–85; PULSE 78–108; RESP 16; TEMP 35.9–36.3; O2SAT 95–100
[2023-04-28] MEDS: BENZOCAINE/MENTHOL (*BKC) 18 EA LOZENGE 1 LOZENGE PO (01:33)
[2023-04-28 07:40] LABS: Basophils Absolute Auto 0.1 K/mm3 (0.0-0.1); Basophils Percent Auto 1.4 % (0.2-1.2); Eosinophils Absolute Auto 0.3 K/mm3 (0-0.3); Eosinophils Percent Auto 5.7 % (0-4.4); Hematocrit 32.9 % (42.0-52.0); Hemoglobin 9.7 g/dL (14.0-18.0); Immature Granulocyte Absolute 0.01 K/mm3 (0.00-0.031); Immature Granulocyte Percent A 0.2 % (0-0.5); Lymphocytes Absolute Auto 1.66 K/mm3 (0.9-3.2); Lymphocytes Percent Auto 32.9 % (18.3-44.2); Mean Corpuscular HGB Conc 29.5 g/dl (32-36); Mean Corpuscular Hemoglobin 24.1 pg (26-34); Mean Corpuscular Volume 81.8 fl (80-100); Mean Platelet Volume 10.4 fl (7.4-10.4); Monocytes Absolute Auto 0.8 K/mm3 (0.1-0.6); Monocytes Percent Auto 15.8 % (2.6-8.5); Neutrophils Absolute Auto 2.2 K/mm3 (1.3-6.7); Platelet Count Result 354 k/mm3 (150-375); Red Blood Count 4.02 M/mm3 (4.6-6.20); Red Cell Distribution Width 16.8 % (11.5-14.5); White Blood Count 5.1 K/mm3 (4.5-10.0)
[2023-04-28 07:58] LABS: Alanine Aminotransferase 35 U/L (6-50); Albumin Level 3.2 g/dL (3.5-5.1); Alkaline Phosphatase 77 U/L (38-126); Anion Gap 5 mmol/L (8-16); Aspartate Amino Transferase 28 U/L (17-59); Bilirubin,Total 0.4 mg/dL (0.2-1.3); Blood Urea Nitrogen 11 mg/dL (9-20); Calcium 8.7 mg/dL (8.4-10.2); Carbon Dioxide 25 mmol/L (22-30); Chloride 104 mmol/L (98-107); Estimated CRCL calculation 58 ml/min; Estimated Glomerular Filt Rate > 60; Glucose 86 mg/dL (65-110); Potassium 4.4 mmol/L (3.4-5.0); Sodium 134 mmol/L (137-145)
[2023-04-28 08:12] LABS: Platelet Estimate Adequate (Adequate); Schistocytes None Seen (NORMAL)
[2023-04-28 08:13] LABS: Crenated RBC 1+ (NORMAL); Hypochromasia 2+ (NORMAL); Tear Drop Cells 1+ (NORMAL)
[2023-04-28] MEDS: FERROUS SULFATE 325 MG TABLET DR PO (08:53)
[2023-04-28] MEDS: FUROSEMIDE 20 MG TABLET PO (08:53)
[2023-04-28] MEDS: ASPIRIN 81 MG CHEWABLE TABLET PO (08:53)
[2023-04-28] MEDS: PANTOPRAZOLE 40 MG TABLET PO ×2 (08:53→15:51)
[2023-04-28] MEDS: METOPROLOL SUCCINATE EXT REL 25 MG TABCR PO (08:53)
[2023-04-28] MEDS: POTASSIUM CHLORIDE 20 MEQ ER TABLET PO ×2 (08:55→15:51)
[2023-04-28] MEDS: SACUBITRIL/VALSARTAN 24-26 MG TABLET 1 TAB PO (08:57)
[2023-04-28] MEDS: IRON SUCROSE COMPLEX 100 MG in SODIUM CHLORIDE 0.9% IV 50 ML 220 MG IVPB (09:00)
[2023-04-28] MEDS: EMPAGLIFLOZIN 10 MG TABLET PO (09:42)
--- NOTE | 2023-04-28 15:11 | PM.DS ---
DS: Admitting Diagnosis Discharge Date 04/28/23 Admitting Diagnosis Shortness of breath DS: Discharge Diagnosis Discharge Diagnosis (1) Acute exacerbation of CHF (congestive heart failure): Code(s): I50.9 - Heart failure, unspecified Status: Acute (2) Elevated troponin: Code(s): R79.89 - Other specified abnormal findings of blood chemistry Status: Acute (3) Anemia: Code(s): D64.9 - Anemia, unspecified Status: Acute (4) Adrenal nodule: Code(s): E27.8 - Other specified disorders of adrenal gland Status: Acute (5) Mitral regurgitation: Code(s): I34.0 - Nonrheumatic mitral (valve) insufficiency Status: Acute (6) Atrial fibrillation: Code(s): I48.91 - Unspecified atrial fibrillation Status: Acute DS: Summary Hospital Course Reason for hospitalization: 63yo male here for shortness of breath found to have new onset of CHF.? Please see H&P for details. Hospital Course: Patient presented with shortness of breath.? CTA of the chest shows mild patchy ground-glass opacities consistent with pulmonary edema.? He had a small right pleural effusion. BNP was 6000. Echo showed mild global hypokinesis with EF of 45-50% and grade 2 diastolic dysfunction.? He had bilateral atrial enlargement.? Mild MR and mild pulmonary hypertension noted.? He did have elevated right atrial pressure at the time of the echo. Patient was started on IV Lasix.?Cardiology consulted and appreciate their input. He was started on aspirin, Empagliflozin, Entresto and Toprol-XL. He had good diuresis and was transitioned to oral Lasix. Troponin mildly elevated at 0.05 but flat.? EKG showed normal sinus rhythm with PVCs, LAD and low voltage with nonspecific T-wave changes.? No change from prior EKG. Echo showed mild MR but may be an underestimation so ADELITA ordered. ADELITA showing moderate-severe MR, MVP and mod-severe LV dysfunction with EF 35-40%. Tele showing episodes of probable AFib. Discussed with Cardiology who recommended anticoagulation so Xarelto started. Hemoglobin was 10.5 in January.? No other values to compare. No melana or hematochezia. He had a colonoscopy 6 yrs ago that was negative. Recent EGD found small ulcers and was Hpylori positive. He completed abx course and is on omeprazole now. Hemoglobin 9.2 on admission that dropped to the 8 range before improving to 10. MCV normal. B12 and folate levels are normal. Iron low with nml TIBC and TSAT at 8%. No ferritin. Stool guaiac negative. Iron deficiency probably related to ulcers. We continue PPI and iron. meeting coordinator determine patient can afford these medications. CTA of the chest shows images through the upper abdomen revealing a 2.8 cm right adrenal nodule which is most likely adenoma but indeterminate based on Hounsfield units.? Follow-up nonemergent MRI should be considered. Biochemical workup ordered. Patient overall did well and was able to be discharged home on 04/28/23 Status at Discharge Cognitive/behavioral status at discharge: Stable Time Spent with Patient Time attestation: Total time spent providing and/or coordinating discharge services: 38 minutes Time spent: Greater than 30 minutes Exam Narrative: AF 97.3 105/75 93 16 99% ra Gen - NARD Chest - CTA bilaterally, nml RR CV - RRR S1/S2. Tele showing episodes of irregular, narrow complex rhythms (reviewed with Cardiology) Abd - Soft, NT/ND, Positive BS Ext - scant pedal edema Psych - Nml mood and affect Skin - Warm and dry DS: Data Data Completed and Pending Labs on day of discharge: Labs from last 24 hours 04/28/23 06:49 WBC 5.1 RBC 4.02 L Hgb 9.7 L Hct 32.9 L MCV 81.8 MCH 24.1 L MCHC 29.5 L RDW 16.8 H Plt Count 354 MPV 10.4 Immature Gran % (Auto) 0.2 Neut % (Auto) 44.0 L Lymph % (Auto) 32.9 [place] % (Auto) 15.8 H Eos % (Auto) 5.7 H Baso % (Auto) 1.4 H Lymph # (Auto) 1.66 [place] # (Auto) 0.8 H Eos # (Auto)
[2023-04-28] MEDS: RIVAROXABAN 20 MG TABLET PO (15:51)
--- NOTE | 2023-04-28 16:30 | PC.NURSE ---
iv out, educated on meds, d/c paper discussed, denies and further questions. will p/u by private car, taking out by wheelchair.
[2023-05-02 14:11] LABS: Metanephrine, Total Urine 769 mcg/24 h (224-832); Metanephrine, Urine 302 mcg/24 h (90-315); Normetanephrine, Urine 467 mcg/24 h (122-676)
[2023-05-06 16:02] LABS: PRA 0.13 ng/mL/h (0.25-5.82)
== END 2023-04-28 16:40 | disposition home or self-care (01) | DRG 292 ==
LOC: ANHED 22:54 → ANHIMU 04-23 02:33 → ANH3MEDSUR 04-23 11:30
PROVIDERS: Internal Medicine; Internal Medicine Cardiovascular Disease; Student in an Organized Health Care Education/Training Program; Admitting Provider Internal Medicine; Emergency Provider Emergency Medicine; Visit Provider Internal Medicine
PROC: B24BZZ4 Ultrasonography of Heart with Aorta, Transesophageal (ICD-10-PCS; CPT 93312; principal; 2023-04-26 13:00)
DX: I50.41 Acute combined systolic (congestive) and diastolic (congestive) heart failure (principal); I42.9 Cardiomyopathy, unspecified; N17.9 Acute kidney failure, unspecified; I48.91 Unspecified atrial fibrillation; R79.89 Other specified abnormal findings of blood chemistry; E27.8 Other specified disorders of adrenal gland; D50.9 Iron deficiency anemia, unspecified; I34.0 Nonrheumatic mitral (valve) insufficiency; Z23 Encounter for immunization; R73.03 Prediabetes
CPT/HCPCS: 36415; 71045; 71275; 80053; 80061; 81001; 82088; 82274; 82384; 82607; 82746; 83036; 83540; 83550; 83690; 83735; 83835; 83880; 84244; 84484; 85025; 85610; 85730; 90471; 90686; 93005; 93306; 93308; 93312; 93320; 93325; 96372; 96374; 96376; 99285; A9270; G0008; G0378; J1650; J1756; J1940; J2250; J3010; J7040; Q9967

== ENCOUNTER 2023-08-07 01:44 | Day surgery (SDC) | payer BC, SELFPAY ==
[2023-08-06 17:45] VITALS: BMI 28.4
[2023-08-07] VITALS (9 sets, daily range): BP systolic 111–128; BP diastolic 88–103; PULSE 77–88; RESP 12–24; TEMP 36.4; O2SAT 92–98; BMI 28.0
[2023-08-07 07:32] LABS: Basophils Absolute Auto 0.1 K/mm3 (0.0-0.1); Basophils Percent Auto 0.9 % (0.2-1.2); Eosinophils Absolute Auto 0.2 K/mm3 (0-0.3); Eosinophils Percent Auto 2.3 % (0-4.4); Hematocrit 42.3 % (42.0-52.0); Hemoglobin 13.1 g/dL (14.0-18.0); Immature Granulocyte Absolute 0.01 K/mm3 (0.00-0.031); Immature Granulocyte Percent A 0.1 % (0-0.5); Mean Corpuscular Hemoglobin 25.3 pg (26-34); Mean Corpuscular Volume 81.8 fl (80-100); Mean Platelet Volume 9.9 fl (7.4-10.4); Monocytes Absolute Auto 0.5 K/mm3 (0.1-0.6); Monocytes Percent Auto 6.5 % (2.6-8.5); Neutrophils Absolute Auto 3.3 K/mm3 (1.3-6.7); Neutrophils Percent Auto 46.2 % (45.5-73.1); Platelet Count Result 229 k/mm3 (150-375); Red Blood Count 5.17 M/mm3 (4.6-6.20); Red Cell Distribution Width 18.6 % (11.5-14.5)
[2023-08-07 07:40] LABS: Anion Gap 9 mmol/L (8-16); Blood Urea Nitrogen 19 mg/dL (9-20); Calcium 9.2 mg/dL (8.4-10.2); Carbon Dioxide 21 mmol/L (22-30); Chloride 108 mmol/L (98-107); Estimated CRCL calculation 58 ml/min; Estimated Glomerular Filt Rate > 60; Glucose 106 mg/dL (65-110); Potassium 4.2 mmol/L (3.4-5.0); Sodium 138 mmol/L (137-145)
--- NOTE | 2023-08-07 09:06 | PM.IMHP ---
H&P: HPI History of Present Illness Date/Time: 08/07/23 09:06 Chief Complaint: Cardiomyopathy, abnormal stress test Narrative: Hakeem De Leon is a 63-year-old male found to have heart failure and a cardiomyopathy when he was admitted in April 2023. His most recent ejection fraction is 31% which is a decline from 45%. He went into atrial fibrillation RVR recently. In addition he has mitral regurgitation which appears to be moderate. A Lexiscan showed EF 31% with severe left ventricular dysfunction small mild fixed anterior and anterior apical defect, small mild to moderate inferior and inferolateral defect with vivian-infarct ischemia and small mild basal anterolateral reversible ischemia. He has had no typical angina. He is feeling well today and his last dose of Xarelto was on Sunday. Review of Systems Constitutional: Constitutional: Denies fever(s) ENT: Denies epistaxis Cardiovascular: Cardiovascular: Denies chest pain, Denies pedal edema, Denies lightheadedness and Denies dyspnea Respiratory: Respiratory: Denies chest congestion, Denies dyspnea and Reports dyspnea on exertion Gastrointestinal: Gastrointestinal: Denies abdominal pain and Denies hematochezia Genitourinary: Genitourinary: Reports no additional male genitourinary complaints Musculoskeletal: Musculoskeletal: Reports no additional musculoskeletal complaints Integumentary/Breasts: Skin/Breast: Reports system reviewed and no additional complaints, except as docu Neurologic: Denies behavioral changes Comments: Some dizziness at times, numbness of some toes left foot Psychiatric: Psychiatric: Denies behavioral changes [facility] Past Medical History Medical History Borderline diabetes Borderline hypertension Cardiomyopathy Healthy adult male Microcytic anemia Mitral regurgitation Surgical History Surgical History No pertinent past surgical history Family History Family History Mother Diabetes mellitus Father , of a viral infection age 47 which weakened his vital organs Viral infection Sibling Diabetes mellitus Hypertension Sibling Hypertension Social History Social History Social History: , no biological children but has step children. Works at the [employer]. Smoking status: Unknown if ever smoked Alcohol intake: unknown Drinks per week: 1 Substance use: unknown Do You Feel Safe in your Home?: Yes Lack of Transportation: No Lack of Food: Never True Current Housing: I Have Housing Concerned About Future Housing: No Difficulty Paying Gas/Electric Bills: No Difficulty Paying for Meds: No Currently Unemployed: No Education: Don't Know Difficulty w/ Childcare or Family Care: No Living arrangements: with family Gender identity (if verbalized by the patient): Male Spiritual care concerns: No Meds Home Medications and Allergies Home Medications Medication Instructions Recorded Confirmed Type Tylenol 1,000 mg BYMOUTH DAILY PRN Pain, 04/23/23 04/23/23 History Mild omeprazole 40 mg-sodium 1 cap PO DAILY 04/23/23 08/07/23 History bicarbonate 1.1 gram capsule aspirin 81 mg chewable tablet 81 mg PO DAILY@0800 #30 tabs 04/28/23 08/07/23 Rx (Children's Aspirin) ferrous sulfate 325 mg (65 mg 325 mg PO DAILY #30 tabs 04/28/23 08/07/23 Rx iron) tablet,delayed release furosemide 20 mg tablet (Lasix) 20 mg PO DAILY #30 tabs 04/28/23 08/07/23 Rx metoprolol succinate 25 mg 25 mg PO QAM #30 tabs 04/28/23 08/07/23 Rx tablet,extended release 24 hr (Toprol XL) rivaroxaban 20 mg tablet (Xarelto) 20 mg PO DAILY@1700 #30 tabs 04/28/23 08/06/23 Rx sacubitril 24 mg-valsartan 26 mg 1 tablet PO Q12HR #60 tabs 04/28/23 08/07/23 Rx tablet (En
--- NOTE | 2023-08-07 09:14 | WPDMODSED ---
Moderate Sedation Note-Pt Data Patient Data Diagnosis: Abnormal stress test, cardiomyopathy, atrial fibrillation, CHF, mitral regurgitation Present Complaint: Hakeem De Leon is a 63-year-old male found to have heart failure and a cardiomyopathy when he was admitted in April 2023.? His most recent ejection fraction is 31% which is a decline from 45%.? He went into atrial fibrillation RVR recently.? In addition he has mitral regurgitation which appears to be moderate.? A Lexiscan showed EF 31% with severe left ventricular dysfunction small mild fixed anterior and anterior apical defect, small mild to moderate inferior and inferolateral defect with vivian-infarct ischemia and small mild basal anterolateral reversible ischemia.? He has had no typical angina.? He is feeling well today and his last dose of Xarelto was on Sunday. Procedure to be performed/Plan: Conscious sedation Left heart catheterization Possible PCI Allergies Allergy/AdvReac Type Severity Reaction Status Date / Time No Known Allergies Allergy Verified 08/07/23 07:25 Home Medications Medication Instructions Recorded Confirmed Type Tylenol 1,000 mg BYMOUTH DAILY PRN Pain, 04/23/23 04/23/23 History Mild omeprazole 40 mg-sodium 1 cap PO DAILY 04/23/23 08/07/23 History bicarbonate 1.1 gram capsule aspirin 81 mg chewable tablet 81 mg PO DAILY@0800 #30 tabs 04/28/23 08/07/23 Rx (Children's Aspirin) ferrous sulfate 325 mg (65 mg 325 mg PO DAILY #30 tabs 04/28/23 08/07/23 Rx iron) tablet,delayed release furosemide 20 mg tablet (Lasix) 20 mg PO DAILY #30 tabs 04/28/23 08/07/23 Rx metoprolol succinate 25 mg 25 mg PO QAM #30 tabs 04/28/23 08/07/23 Rx tablet,extended release 24 hr (Toprol XL) rivaroxaban 20 mg tablet (Xarelto) 20 mg PO DAILY@1700 #30 tabs 04/28/23 08/06/23 Rx sacubitril 24 mg-valsartan 26 mg 1 tablet PO Q12HR #60 tabs 04/28/23 08/07/23 Rx tablet (Entresto) empagliflozin 10 mg tablet 10 mg PO HS 08/07/23 08/07/23 History (Jardiance) Current Medications: Active Medications Sodium Chloride (Normal Saline Iv) 500 mls @ 100 mls/hr IV CONT .Q5H ANN Sedation/Anesthesia: No previous sedation/anesthesia problems (including family history). [facility] Past Medical History Medical History Borderline diabetes Borderline hypertension Cardiomyopathy Healthy adult male Microcytic anemia Mitral regurgitation Surgical History Surgical History No pertinent past surgical history Family History Family History Mother Diabetes mellitus Father , of a viral infection age 47 which weakened his vital organs Viral infection Sibling Diabetes mellitus Hypertension Sibling Hypertension Social History Social History Social History: , no biological children but has step children. Works at the [employer]. Smoking status: Unknown if ever smoked Alcohol intake: unknown Drinks per week: 1 Substance use: unknown Do You Feel Safe in your Home?: Yes Lack of Transportation: No Lack of Food: Never True Current Housing: I Have Housing Concerned About Future Housing: No Difficulty Paying Gas/Electric Bills: No Difficulty Paying for Meds: No Currently Unemployed: No Education: Don't Know Difficulty w/ Childcare or Family Care: No Living arrangements: with family Gender identity (if verbalized by the patient): Male Spiritual care concerns: No Mod Sed Physical Exam Physical Exam Pre Procedural Exam: Normal: Appearance, Eyes, Ears, Nose, Neck, Throat, Airway, Lungs, Heart Size, Neuro Exam, Abdomen, Extremities and Skin and Variation: Heart Rate (Tachycardia) and Heart Rhythm (Irregular) Hours since solid foods: 12 Hours since liquid intake: 12
--- NOTE | 2023-08-07 10:09 | P.OPB_ITS ---
Procedure Note - Brief Procedure Note - Brief Date of procedure: 08/07/23 Abnormal Stress Test Post-op diagnosis: Other (Mild AD, cardiomyopathy) Procedure performed: Conscious sedation Left heart cath Surgeon: Chel Hess MD Findings: Mild CAD Cardiomyopathy Mitral regurgitation Description of procedure: Uneventfuul left heart cath Complications: No immediate complications Condition: Stable Disposition: Observation
--- NOTE | 2023-08-07 13:37 | WPDCARDPROC ---
Cardiac Cath Procedure Note Date of procedure:: 08/07/23 Performing physician:: Chel Hess MD Indication:: Abnormal stress test showing fixed and reversible defects, apathy, CHF, mitral regurgitation. Brief clinical history:: Hakeem De Leon is a 63-year-old male found to have heart failure and a cardiomyopathy when he was admitted in April 2023.? His most recent ejection fraction is 31% which is a decline from 45%.? He went into atrial fibrillation RVR recently.? In addition he has mitral regurgitation which appears to be moderate.? A Lexiscan showed EF 31% with severe left ventricular dysfunction small mild fixed anterior and anterior apical defect, small mild to moderate inferior and inferolateral defect with vivian-infarct ischemia and small mild basal anterolateral reversible ischemia.? His father of heart disease, said to be a viral infection, in his 40s, thus the patient may have a familial cardiomyopathy. He has had no typical angina.? He is feeling well today and his last dose of Xarelto was on Sunday. Procedure Procedure performed:: Procedure: 1. Conscious sedation 2. Left heart catheterization 3. Selective Coronary angiography 4. Left ventriculography Sedation/Medication given:: Conscious sedation: The patient has no known prior history of adverse affects of conscious sedation. Oropharynx was clear. The patient is deemed a good candidate for conscious sedation. Conscious sedation began at: 9:36 a.m. Conscious sedation ended at: 10:02 a.m. Total conscious sedation time: 26 min Medications: Versed 1 mg, fentanyl 50 mcg IV push The patient had continuous hemodynamic monitoring, and was also continuously monitored by: Dorothy Sharp RN The patient tolerated conscious sedation well. Estimated blood loss:: 5 -10 cc Procedure note:: Site: Right femoral artery Catheters: 5 Nepalese arterial sheath, 5 Nepalese 4 cm right and left Conrado catheters, 5 Nepalese pigtail catheter Detailed procedure: After informed consent the patient brought to the dock or pier laborer and the right femoral area was prepped and draped in the usual fashion. After conscious sedation and local anesthesia the right femoral artery was punctured and cannulated with the arterial sheath. Selective Coronary angiography was performed with the coronary catheters in multiple projections. These were withdrawn. The pigtail catheter was advanced into the central circulation and left ventricle for pressure measurements and left ventriculography which was performed in the JAMES projection. This was withdrawn. Andiography of the eft common femoral artery was performed and the sheath was in suitable position for an vascular closure device. However, there I was not able to easily slide the Angioseal sheath into the artery even after dilatation with a 6 Fr sheath, so this was abandoned as I did not want to damage the artery. Hemostasis was obtained using local pressure. The patient tolerated the procedure well with no complications. Estimated blood loss was negligible. Findings:: Left coronary artery: Some calcification of the proximal vessels but no significant coronary artery disease of the left main, Left anterior descending and circumflex vessels. The circumflex was codominant.. Right coronary artery: Mild stenoses were seen in the mid and distal segment, the maximum being about 40%. Left ventriculogram: Left ventriculography revealed severe global hypokinesis with akinesis of the inferior segments. Estimated ejection fraction 30%. There was mitral regurgitation, not well visualized but at least moderate in severity. Left atrial enlargement noted. Pressures: Aortic pressure 120/75, LV pressure 120/22 mmHg. Heart rhythm: Atrial fibrillation, heart rates 80-100 ppm. Conclusion:: Mild CAD with some calcification of the proximal vessels and mild CAD of the mid and distal RCA, maximum 40% stenosis. Cardiomyopathy, ejection fr
== END 2023-08-07 14:00 | disposition home or self-care (01) ==
PROVIDERS: Visit Provider Internal Medicine Cardiovascular Disease
PROC: 4A023N7 Measurement of Cardiac Sampling and Pressure, Left Heart, Percutaneous Approach (ICD-10-PCS; CPT 93452; principal; 2023-08-07 08:30)
DX: I48.91 Unspecified atrial fibrillation (principal); I25.10 Atherosclerotic heart disease of native coronary artery without angina pectoris; I34.0 Nonrheumatic mitral (valve) insufficiency; I42.9 Cardiomyopathy, unspecified; I50.9 Heart failure, unspecified; R94.39 Abnormal result of other cardiovascular function study; D64.89 Other specified anemias; Z79.01 Long term (current) use of anticoagulants; Z79.82 Long term (current) use of aspirin; Z79.84 Long term (current) use of oral hypoglycemic drugs
CPT/HCPCS: 36415; 80048; 85025; 93458; C1760; C1887; C1894; G0269; J1644; J2250; J3010; J7040

== ENCOUNTER 2023-09-11 01:08 | Day surgery (SDC) | payer BC, SELFPAY ==
[2023-09-11] VITALS (8 sets, daily range): BP systolic 108–123; BP diastolic 83–93; PULSE 59–71; RESP 15–25; TEMP 36.1; O2SAT 100; BMI 27.6
--- NOTE | 2023-09-11 07:00 | ECG_ITS ---
SEE SCANNED COPY FOR CONFIRMED REPORT MTDD
--- NOTE | 2023-09-11 07:00 | ECG_ITS ---
SEE SCANNED COPY FOR CONFIRMED REPORT MTDD
[2023-09-11 08:07] LABS: Anion Gap 9 mmol/L (4-12); Blood Urea Nitrogen 30 mg/dL (9-20); Calcium 9.7 mg/dL (8.4-10.2); Carbon Dioxide 26 mmol/L (22-30); Chloride 102 mmol/L (98-107); Estimated CRCL calculation 54 ml/min; Estimated Glomerular Filt Rate > 60; Glucose 104 mg/dL (65-110); Magnesium 2.1 mg/dL (1.6-2.3); Potassium 4.6 mmol/L (3.4-5.0); Sodium 137 mmol/L (137-145)
--- NOTE | 2023-09-11 08:51 | WPDHPUPDATE1 ---
History and Physical Update Update Date/Time: 09/11/23 08:51 History and Physical has been reviewed, including an updated exam of the patient. There are NO changes in the patient's condition. Risks, benefits, and alternatives have been discussed and questions answered. Patient agrees to proceed with procedure.
--- NOTE | 2023-09-11 08:51 | WPDMODSED ---
Moderate Sedation Note-Pt Data Patient Data Diagnosis: Atrial fibrillation Present Complaint: Atrial fibrillation Procedure to be performed/Plan: Cardioversion Allergies Allergy/AdvReac Type Severity Reaction Status Date / Time No Known Allergies Allergy Verified 09/11/23 07:34 Home Medications Medication Instructions Recorded Confirmed Type Tylenol 1,000 mg BYMOUTH DAILY PRN Pain, 04/23/23 09/10/23 History Mild omeprazole 40 mg-sodium 1 cap PO DAILY 04/23/23 09/10/23 History bicarbonate 1.1 gram capsule aspirin 81 mg chewable tablet 81 mg PO DAILY@0800 #30 tabs 04/28/23 09/10/23 Rx (Children's Aspirin) furosemide 20 mg tablet (Lasix) 20 mg PO DAILY #30 tabs 04/28/23 09/10/23 Rx metoprolol succinate 25 mg 25 mg PO QAM #30 tabs 04/28/23 09/10/23 Rx tablet,extended release 24 hr (Toprol XL) rivaroxaban 20 mg tablet (Xarelto) 20 mg PO DAILY@1700 #30 tabs 04/28/23 09/10/23 Rx amiodarone 200 mg tablet 200 mg PO BID #60 tabs 08/07/23 09/10/23 Rx atorvastatin 40 mg tablet 40 mg PO DAILY #90 tabs 08/07/23 09/10/23 Rx empagliflozin 10 mg tablet 10 mg PO HS 08/07/23 09/10/23 History (Jardiance) sacubitril 49 mg-valsartan 51 mg 1 tablet PO BID 09/10/23 09/10/23 History tablet (Entresto) Current Medications: Active Medications Sodium Chloride (Normal Saline Iv) 1,000 mls @ 30 mls/hr IV CONT .Q24H ANN Sedation/Anesthesia: No previous sedation/anesthesia problems (including family history). [facility] Past Medical History Medical History Borderline diabetes Borderline hypertension CAD (coronary artery disease) 07/2023 Cath: 40% mid RCA stenosis Cardiomyopathy Healthy adult male Microcytic anemia Mitral regurgitation Surgical History Surgical History No pertinent past surgical history Family History Family History Mother Diabetes mellitus Father , of a viral infection age 47 which weakened his vital organs Viral infection Sibling Diabetes mellitus Hypertension Sibling Hypertension Social History Social History Social History: , no biological children but has step children. Works at the [employer]. Smoking status: Unknown if ever smoked Alcohol intake: unknown Drinks per week: 1 Substance use: unknown Do You Feel Safe in your Home?: Yes Lack of Transportation: No Lack of Food: Never True Current Housing: I Have Housing Concerned About Future Housing: No Difficulty Paying Gas/Electric Bills: No Difficulty Paying for Meds: No Currently Unemployed: No Education: Don't Know Difficulty w/ Childcare or Family Care: No Living arrangements: with family Gender identity (if verbalized by the patient): Male Spiritual care concerns: No Mod Sed Physical Exam Physical Exam Pre Procedural Exam: Normal: Appearance, Heart Rate, Neuro Exam, Extremities and Skin and Variation: Heart Rhythm (Atrial flutter) Hours since solid foods: 12 Hours since liquid intake: 8 Mallampati Classification: class III Internal Medicine - PN: Obj Da Vital Signs Vital Signs: Vital Signs - 24 hr 09/11/23 07:43 Temperature 36.1 C L Pulse Rate 68 Respiratory Rate 17 Blood Pressure 111/93 H Pulse Oximetry 100 Oxygen Delivery Room Air Meds/Results Medications: Active Medications Generic Name Dose Route Start Last Admin Trade Name Freq PRN Reason Stop Dose Admin Sodium Chloride 1,000 mls @ 30 mls/hr 09/11/23 07:00 Normal Saline Iv IV CONT .Q24H ANN Labs 09/11/23 07:40 Labs: Laboratory Results - last 24 hr 09/11/23 07:40 Sodium 137 Potassium 4.6 Chloride 102 Carbon Dioxide 26 Anion Gap 9 BUN 30 H D Creatinine 1.40 H Estim Creat Clear Calc 54 Estimated GFR > 60 Glu
--- NOTE | 2023-09-11 09:06 | WPDCARDVER ---
Cardioversion Cardioversion Date of procedure: 09/11/23 Procedure: Cardioversion Pre-op diagnosis: Atrial fibrillation Post-op diagnosis: Other (Sinus bradycardia ) Indications: Atrial fibrillation/atrial flutter Description of procedure: [facility] Written informed consent obtained. Defibrillator pads placed in an anteroposterior position. Patient's hemodynamics and respiratory status was monitored throughout the procedure. Time out performed by ZACK Levi. Total of Propofol 60mg IV was administered by nm. Once patient was adequately sedated, synchronized electrical cardioversion was performed with 1 shock at 200 joules, which converted patient to sinus bradycardia. Sedation: Total of Propofol 60mg IV. Procedure start time: 08:58 AM Procedure end time: 09:04 AM Findings: Successful cardioversion to sinus rhythm with 1 shock at 200 joules. Conclusion: Successful cardioversion to sinus rhythm with 1 shock at 200 joules.
== END 2023-09-11 10:09 | disposition home or self-care (01) ==
PROVIDERS: Visit Provider Internal Medicine
PROC: 5A2204Z Restoration of Cardiac Rhythm, Single (ICD-10-PCS; principal; 2023-09-11 08:30)
DX: I48.91 Unspecified atrial fibrillation (principal); I25.10 Atherosclerotic heart disease of native coronary artery without angina pectoris; I42.9 Cardiomyopathy, unspecified; R73.03 Prediabetes; Z79.82 Long term (current) use of aspirin; Z79.01 Long term (current) use of anticoagulants; Z79.84 Long term (current) use of oral hypoglycemic drugs
CPT/HCPCS: 36415; 80048; 83735; 92960; 93005; J0461; J2704; J7030

== ENCOUNTER 2023-10-10 07:15 | Outpatient (RCR) | payer SELFPAY ==
[2023-06-12 15:57] VITALS: PULSE 94
== END 2023-10-10 23:59 | disposition home or self-care (01) ==
LOC: ANHCPREHAB 07:15
PROVIDERS: Visit Provider Internal Medicine Cardiovascular Disease
DX: I50.89 Other heart failure (principal)
CPT/HCPCS: 99199

== ENCOUNTER 2023-12-27 07:15 | Outpatient (RCR) | payer SELFPAY | END 2023-12-31 07:49 | disposition home or self-care (01) | LOC: ANHCPREHAB 07:15 | PROVIDERS: Visit Provider Internal Medicine | DX: I50.89 Other heart failure (principal) | CPT/HCPCS: 99199 ==

== ENCOUNTER 2024-12-30 14:22 | Emergency (ER) | payer OTHER, SELFPAY ==
--- NOTE | ~2024-12-30 | CT_ITS ---
EXAMINATION: CT facial bones wo con DATE: 12/30/2024 15:31 CDT INDICATION: Abscess TECHNIQUE: CT of the facial bones and maxillofacial region was performed without intravenous contrast . The dose-length product was 387.32 mGy-cm. COMPARISON: None. FINDINGS: Maxillofacial CT: No acute intrapelvic limits. No mass effect. No midline shift. No hydrocephalus. Globes and orbits ar e grossly unremarkable. Mastoid air cells are grossly clear. Minimal mucoperiosteal thickening in the left maxillary sinus. There are dental hardware motion artifact which limits evaluation. There is a 3.0 x 3.5 x 3.1 cm hypodense masslike structure adjacent to the left maxilla with adjacent fat stranding. The masslike structure is ill-defined. There is a 4 mm lucency along the lateral aspe ct of the left maxilla which abuts the masslike structure. Parotid glands are unremarkable. Visualized tongue is unremarkable. No enlarged lymph nodes identifie d. The soft tissues of the neck. IMPRESSION: 1. There is a 3.0 x 3.5 x 3.1 cm hypodense masslike structure adjacent to the left maxilla with adjac ent fat stranding. The masslike structure is ill-defined. There is a 4 mm lucency along the lateral a spect of the left maxilla which abuts the masslike structure. There is a possible nondisplaced fractu re of a tooth in this location. Correlate clinically. The finding may represent a phlegmon/developing abscess. Other etiologies including a mass are possible. Recommend follow-up to resolution. Reviewed, dictated and finalized at location A. IMPRESSION: 1. There is a 3.0 x 3.5 x 3.1 cm hypodense masslike structure adjacent to the l eft maxilla with adjacent fat stranding. The masslike structure is ill-defined. There is a 4 mm lucency along the lateral aspect of the left maxilla which abu ts the masslike structure. There is a possible nondisplaced fracture of a tooth in this location. Correlate clinically. The finding may represent a phlegmon/d eveloping abscess. Other etiologies including a mass are possible. Recommend fo llow-up to resolution.
[2024-12-30 14:34] VITALS: BP 127/65; PULSE 87; RESP 16; TEMP 36.4; O2SAT 99
--- OUTSIDE RECORDS SUMMARY | 2024-12-30 14:48 | XMS_ITS | Clinical Summary ---
Author Organization [facility] Address [address] [place] [address] Care Team Providers Care Hogshead Packer Name Role Phone Dariela Arango MD Primary Care Provider [phone] Source Comments [facility],non-[facility] Affiliates and Associated Physician Practices is amultiple site organization consisting of ambulatory clinics and hospital sitesin [place], [place], [place] and [place]. This disclosure is being madepursuant to the Care Everywhere program and may not contain all information available regarding this patient. Last updated 18.[facility] [employer] Social History Tobacco Use Types Packs/Day Years Used Date Smoking Tobacco: Never Assessed Sex and Gender Information Value Date Recorded Sex Assigned at Not on file Legal Sex Male 5:36 PM CDT Gender Identity Not on file Sexual Orientation Not on file Plan of Treatment Health Maintenance Due Date Last Done Comments COLOGUARD (AGES 45-75) - COL ON CA SCREENING 1961 COLON MONITORING 1961 COLONOSCOPY - COLON CA SCREENING 1961 CT COLONOGRAPHY - COLON CA SCREENING 1961 Colorectal Cancer Screening 1961 FIT - COLON CA SCREENING 1961 FLEX SIG - COLON CA SCREENING 1961 LIPID TESTING 1961 HIV SCREENING 01/10/1976 HEPATITIS C SCREENING 01/05/1979 DTAP/TDAP/TD VACCINES (1 - Tdap) 01/10/1980 PNEUMOCOCCAL VACCINE 50+ (1 of 1 - PCV) 2011 ZOSTER VACCINE (1 of 2) 2011 COVID-19 VACCINE ( - 2023-2 5 season) 2024 DEPRESSION SCREENING 05/21/2024 INFLUENZA VACCINE (#1) 2025 Respiratory Syncytial Virus (RSV) Vaccine Pt: or over 60 yrs (1 - 1-dose 75+ series) 01/10/2036 HEPATITIS B VACCINE Aged Out No longe r eligible based on patient's age to complete this topic HIB VACCINE Aged Out No longer eligi ble based on patient's age to complete this topic HPV VACCINE Aged Out No longer eligi ble based on patient's age to complete this topic MENINGOCOCCAL (Group B) VACC INE SHARED DECISION-MAKING Aged Out No longer eligibl e based on patient's age to complete this topic MENINGOCOCCAL GROUPS A/C/Y/W VACCINE Aged Out No longer eligible b ased on patient's age to complete this topic Insurance [employer] Care Teams Hogshead Packer Relationship Specialty Start Date End Date Dariela Arango MD [address] [place] [address] PCP - General Internal Medicine 10/28/19
--- OUTSIDE RECORDS SUMMARY | 2024-12-30 14:48 | XMS_ITS | Clinical Summary ---
Author Organization [facility] Address [address] [place] [address] Care Team Providers Care Legal Billing Coordinator Name Role Phone Dariela Arango MD Primary Care Provider Pamela Brizuela RN Unavailable Unavaila ble Rita White RN Unavailable Unavailable Allergies No known active allergies Medications omeprazole-sodium bicarbonate (ZEGERID) 40-1.1 mg-gram per capsule Take 1 capsule by mouth daily 3 Active Jardiance 10 mg tablet TAKE 1 TABLET BY MOUTH DAILY 30 tablet 11 4 Active amiodarone (PACERONE) 200 mg tabletIndications:P revention of Recurrent Atrial Fibrillation Take 1 tablet (200 mg total) by mouth daily Active atorvastatin (LIPITOR) 40 mg tablet TAKE ONE TABLET BY MOUTH ONCE DAILY 90 tablet 3 5 Active spironolactone (ALDACTONE) 25 mg tablet TAKE 1 TABLET (25 MG TOTAL) BY MOUTH DAILY. 90 tablet 3 5 10/02/19 26 Active rivaroxaban (Xarelto) 20 mg tabletIndications:E ffusion, unspecified ankle Take 1 tablet by mouth once daily with food 90 tablet 1 5 Active sacubitriL-valsarta n (Entresto) 97-103 mg tabletIndications:D ilated cardiomyopathy (HCC) TAKE 1 TABLET BY MOUTH TWICE A DAY 60 tablet 1 5 Active metoprolol XL (TOPROL-XL) 50 mg extended release tabletIndications:D ilated cardiomyopathy (HCC) Take 1 tablet (50 mg total) by mouth daily 90 tablet 3 5 11/28/19 26 Active Active Problems Problem Noted Date Diagnosed Date Chronic anticoagulation 05/29/2024 Coronary artery disease invo lving [place] coronary artery [place] heart without angina pectoris 05/29/2024 Primary hypertension 05/29/2024 Mixed hyperlipidemia 05/29/2024 Dilated cardiomyopathy 05/24/2023 Mitral valve insufficiency 05/24/2023 Lipid screening 05/24/2023 Paroxysmal atrial fibrillation 05/24/2023 Encounters Date Type Department Care Team Description 10/01/2024 Telephone [facility] Transplant Heart [address] [facility] [facility] [phone] [place] [address] Nat Villa RN from Last 3 Months Surgical History Surgery Date Site/Laterality Comments KNEE SURGERY Medical History Medical History Date Comments Heart murmur Heart failure Social History Tobacco Use Types Packs/Day Years Used Date Smoking Tobacco: Never Tobacco Cessation:Counseling Given: Not Answered Sex and Gender Information Value Date Recorded Sex Assigned at Not on file Legal Sex Male 9:54 AM THEATRICAL AGENT Gender Identity Not on file Sexual Orientation Not on file Obstetrics History Last Filed Vital Signs Vital Sign Reading Time Taken Comments Blood Pressure 140/93 06/03/2024 10:11 AM THEATRICAL AGENT Pulse 63 06/03/2024 10:11 AM THEATRICAL AGENT Temperature - - Respiratory Rate - - Oxygen Saturation 99% 06/03/2024 10:11 AM THEATRICAL AGENT Inhaled Oxygen Concentration - - Weight 101.2 kg (223 lb) 06/03/2024 10:11 AM THEATRICAL AGENT Height 182.9 cm (6') 06/03/2024 10:11 AM THEATRICAL AGENT Body Mass Index 30.24 06/03/2024 10:11 AM THEATRICAL AGENT Plan of Treatment Health Maintenance Due Date Last Done Comments Colon Cancer Screening-Colonoscopy 1961 Depression Screening 1961 Hepatitis C Screening 1961 Prostate Cancer Screening-PSA 1961 Hepatitis B Screening 1979 Regular Well Visit/Exam 18-64 1979 Zoster Vaccine (2 of 2) 05/20/2022 03/25/2022 Covid-19 Vaccine ( season) 2024 02/06/2022, 10/06/2021, 06/01/2021, Additional history exists Influenza Vaccine (#1) 2025 03/25/2022, 2011 DTaP/Tdap/Td Vaccine (2 - Td or Tdap) 05/06/2030 05/06/2020 Pneumococcal vaccine <65 Aged Out No longer eligible based on patient's age to complete this topic Insurance [id number] OOS [id number] O[employer] Care Teams Legal Billing Coordinator Relationship Specialty Start Date End Date Dariela Arango MD [address] [place] [address] PCP - General Internal Medicine 05/25/22 Pamela Brizuela, train electronic technician Failure Coordinator 10/02/23 Rita White, train electronic technician Failure Coordinator Transplant 10/02/23
--- NOTE | 2024-12-30 14:56 | ED_ITS ---
HPI - Skin/Abscess/Foreign Bdy General Chief complaint: Skin/Abscess/Foreign Body Stated complaint: swelling to left side of face for 2-3 days Time Seen by Provider: 12/30/24 14:49 History of Present Illness HPI narrative: Pt presents with facial swelling for two days. Pt says he did try to squeeze spot but did not produce anything. Pt denies fever. Pt denies dental pain. Related Data Home Medications ?Medication ?Instructions ?Recorded ?Confirmed ?Last Taken ?Type Tylenol 1,000 mg BYMOUTH DAILY PRN Pain, 04/23/23 09/10/23 Unknown History Mild omeprazole 40 mg-sodium 1 cap PO DAILY 04/23/23 09/10/23 09/10/23 History bicarbonate 1.1 gram capsule empagliflozin 10 mg tablet 10 mg PO HS 08/07/23 09/10/23 09/10/23 History (Jardiance) sacubitril 49 mg-valsartan 51 mg 1 tablet PO BID 09/10/23 09/10/23 09/10/23 History tablet (Entresto) Allergies Allergy/AdvReac Type Severity Reaction Status Date / Time No Known Allergies Allergy Verified 12/30/24 14:36 Review of Systems Review of Systems: All systems reviewed & are unremarkable except as noted in HPI and below PMFSH Past Medical History Medical History Borderline diabetes Borderline hypertension CAD (coronary artery disease) 07/2023 Cath: 40% mid RCA stenosis Cardiomyopathy Healthy adult male Microcytic anemia Mitral regurgitation Surgical History Surgical History No pertinent past surgical history Family History Family History Mother Diabetes mellitus Father , of a viral infection age 47 which weakened his vital organs Viral infection Sibling Diabetes mellitus Hypertension Sibling Hypertension Social History Social History Social History: , no biological children but has step children. Works at the [employer]. Smoking status: Unknown if ever smoked Alcohol intake: unknown Drinks per week: 1 Substance use: unknown Do You Feel Safe in your Home?: Yes Lack of Transportation: No Lack of Food: Never True Current Housing: I Have Housing Concerned About Future Housing: No Difficulty Paying Gas/Electric Bills: No Difficulty Paying for Meds: No Currently Unemployed: No Education: Don't Know Difficulty w/ Childcare or Family Care: No Living arrangements: with family Gender identity (if verbalized by the patient): Male Spiritual care concerns: No Exam Const: General: healthy appearing and no acute distress Nutritional Appearance: well nourished Orientation/consciousness: patient oriented x3 Limitations: no limitations HENMT: Head: normal to inspection Other: pt has large facial abscess left cheek with induration. Resp: Effort & Inspection: normal respiratory effort Auscultation: clear to auscultation bilaterally Cardio: Rate: regular rate Rhythm: regular rhythm GI: Auscultation: normal bowel sounds Skin: General skin exam: normal color Wounds: no wounds Neuro: General: patient oriented x3 and moves all extremities Speech: normal speech Extrem: General: normal to inspection and no clubbing, cyanosis or edema Psych: Mental Status: mental status grossly normal Affect: normal affect Attitude: cooperative Course Vital Signs Vital signs: Vital Signs Temperature 97.6 F 12/30/24 14:34 Pulse Rate 87 12/30/24 14:34 Respiratory Rate 16 12/30/24 14:34 Blood Pressure 127/65 12/30/24 14:34 Pulse Oximetry 99 12/30/24 14:34 Temperature 97.6 F 12/30/24 14:34 Pulse Rate 87 12/30/24 14:34 Respiratory Rate 16 12/30/24 14:34 Blood Pressure 127/65 12/30/24 14:34 Pulse Oximetry 99 12/30/24 14:34 Procedures Abscess I/D face: Date of Incision: 12/30/24 Time of Incision: 16:30 Side (if applicable): left Local Anesthetic: lidocaine 1% Amount of anesthesia used (mL): 3 Amount of fluid expressed (mL): 7 I&D Results: Pus Abcess I&D Additional Comments: lidocaine injected into area of fluctuance and abscess started draining inside of mouth so did not make incision in face. milked area and expressed more pus. swellling decreased substantially. Discharge Plan Discharge Clinical Impression: Abscess Patient Disposition: Home Condition: Improved Instructions: Antibiotic Form, Abscess (ED) Patient Language: [place] Citizen Prescriptions: New tetracycline 500 mg tablet 500 mg PO TID Qty: 30 0RF hydrocodone-acetaminophen 5-325 mg tablet 1 tablet PO Q6H PRN (Reason: pain) Qty: 10 0RF No Action omeprazole-sodium bicarbonate 40-1.1 mg-gram capsule 1 cap PO DAILY Tylenol 1,000 mg BYMOUTH DAILY PRN (Reason: Pain, Mild) aspirin [Children's Aspirin] 81 mg Tablet,Chewable 81 mg PO DAILY@0800 Qty: 30 2RF metoprolol succinate [Toprol XL] 25 mg Tablet Extended Release 24 Hr 25 mg PO QAM Qty: 30 2RF Xarelto 20 mg Tablet 20 mg PO DAILY@1700 Qty: 30 2RF furosemide [Lasix] 20 mg tablet 20 mg PO DAILY Qty: 30 0RF Jardiance 10 mg tablet 10 mg PO HS atorvastatin 40 mg tablet 40 mg PO DAILY Qty: 90 3RF amiodarone 200 mg tablet 200 mg PO BID Qty: 60 0RF Entresto 49-51 mg tablet 1 tablet PO BID Follow-up/Referrals: PHYSICIAN NOT ON STAFF,NONSTAFF [Primary Care Provider] -
--- OUTSIDE RECORDS SUMMARY | 2024-12-30 15:34 | XMS_ITS | Clinical Summary ---
Author Organization [facility] Address [address] [place] [address] Care Team Providers Care Waterworks Employee Name Role Phone Dariela Arango MD Primary Care Provider [phone] Source Comments [facility],non-select specialty hospital Affiliates and Associated Physician Practices is amultiple site organization consisting of ambulatory clinics and hospital sitesin [place], [place], [place] and [place]. This disclosure is being madepursuant to the Care Everywhere program and may not contain all information available regarding this patient. Last updated 18.[facility] [employer] Social History Tobacco Use Types Packs/Day Years [...] this topic Insurance [employer] Care Teams Waterworks Employee Relationship Specialty Start Date End Date Dariela Arango MD [address] [place] [address] PCP - General Internal Medicine 10/28/19
--- OUTSIDE RECORDS SUMMARY | 2024-12-30 15:34 | XMS_ITS | Encounter Summary ---
Author Organization [facility] Address [facility] [place] [address] Care Team Providers Care Filter Worker Name Role Phone Dariela Arango MD Primary Care Provider [phone] Encounter Details Date Type Department Care Team (Late st Contact Info) Description 11/07/2023 Abstract [facility], [address] [address] Lesley Moody MA Social History Tobacco Use Types Packs/Day Years Used Date Smoking Tobacco: Never Assessed Sex and Gender Information Value Date Recorded Sex Assigned at Not on file Legal Sex Male 4:04 PM CDT Gender Identity Not on file Sexual Orientation Not on file documented as of this encounter Plan of Treatment Not on file documented as of this encounter Procedures Procedure Name Priority Date/Time Associated Diagnosis Comments COMPREHENSIVE METABOLIC PANEL Routine 04/28/2023 CBC, MANUAL DIFF Routine 04/28/2023 LIPID PANEL Routine 04/24/2023 documented in this encounter Results * COMPREHENSIVE METABOLIC PANEL (04/28/2023) SODIUM S/P/B 134 GLUCOSE 86 mg/dL AST 28 BUN 11 CREATININE S/P/B 1.30 0.7 - 1.3 CALCIUM S/P/B 8.7 POTASSIUM S/P/B 4.4 CHLORIDE S/P/B 104 ALT 35 GFR ESTIMATE >60 us Default History Genericprovider LABORATORY Final Result * CBC, MANUAL DIFF (04/28/2023) WBC 5.1 HGB 9.7 HCT 32.9 PLT 354 us Default History Genericprovider LABORATORY Final Result * LIPID PANEL (04/24/2023) CHOLESTEROL 121 TRIGLYCERIDES 69 HDL 28 DIRECT LDL 78 us Default History Genericprovider LABORATORY Final Result documented in this encounter Visit Diagnoses Not on filedocumented in this encounter Care Teams Filter Worker Relationship Specialty Start Date End Date Dariela Arango MD [address] [place] [address] PCP - General INTERNAL MEDICINE 05/07/23 documented as of this encounter
--- OUTSIDE RECORDS SUMMARY | 2024-12-30 15:34 | XMS_ITS | Clinical Summary ---
Author Organization [facility] Address [address] [place] [address] Care Team Providers Care Log Yard Derrick Operator Name Role Phone Dariela Arango MD Primary Care Provider [phone] Medications JARDIANCE 10 MG tablet Take 1 tablet (10 mg total) by mouth daily. 07/23/2023 Active ferrous sulfate, 65 mg elemental, 325 (65 FE) MG tablet Take 1 tablet (325 mg total) by mouth daily with breakfast. 05/31/2023 Active furosemide (LASIX) 20 MG tablet Take 1 tablet (20 mg total) by mouth daily. 07/03/2023 Active metoprolol succinate ER (TOPROL-XL) 50 MG 24 hr tablet Take 1 tablet (50 mg total) by mouth daily. 07/03/2023 Active Omeprazole-Sodiu m Bicarbonate 40-1100 MG Cap Take 1 capsule by mouth daily. 07/16/2023 Active potassium chloride CR (MICRO-K) 10 MEQ CR capsule Take 1 capsule (10 mEq total) by mouth daily. 06/21/2023 Active XARELTO 20 MG Tab tablet Take 1 tablet (20 mg total) by mouth daily with supper. 07/23/2023 Active ENTRESTO 49-51 MG tablet Take 1 tablet by mouth 2 (two) times daily. 07/03/2023 Active tadalafil (CIALIS) 20 MG tablet TAKE 1 TABLET BY MOUTH EVERY 72 HOURS NEEDED 07/16/2023 Active Social History Tobacco Use Types Packs/Day Years Used Date Smoking Tobacco: Never Assessed Sex and Gender Information Value Date Recorded Sex Assigned at Not on file Legal Sex Male 4:04 PM CDT Gender Identity Not on file Sexual Orientation Not on file Plan of Treatment Health Maintenance Due Date Last Done Comments Colorectal Cancer Screening Colonoscopy (10 Years) 1961 Annual Physical 01/10/1964 Hepatitis C 1979 DTaP, Tdap and Td Vaccines ( 1 - Tdap) 01/10/1980 Pneumococcal Vaccine: 50+ Ye ars (1 of 1 - PCV) 2011 Zoster Vaccines (1 of 2) 2011 COVID-19 Vaccine (1 - 2023-2 5 season) 2024 RSV Immunization or 60+ Years (1 - 1-dose 75+ series) 01/10/2036 Meningococcal B Vaccine Aged Out No l onger eligible based on patient's age to complete this topic Meningococcal Vaccine Aged Out No russ fermin eligible based on patient's age to complete this topic RSV Immunizations Under 20 Months Aged Out No longer eligible based on patient's age to complete this topic [place] [address] [address] [place] [address] Care Teams Log Yard Derrick Operator Relationship Specialty Start Date End Date Dariela Arango MD [address] [place] [address] PCP - General INTERNAL MEDICINE 05/07/23
--- OUTSIDE RECORDS SUMMARY | 2024-12-30 15:34 | XMS_ITS | Clinical Summary ---
Author Organization [facility] Address [address] [place] [address] Care Team Providers Care Agricultural Researcher Name Role Phone Dariela Arango MD Primary [...] anticoagulation 05/29/2024 Coronary artery disease invo lving [place] coronary artery of [place] heart without angina pectoris 05/29/2024 Primary hypertension 05/29/2024 Mixed hyperlipidemia 05/29/2024 Dilated cardiomyopathy 05/24/2023 Mitral valve insufficiency 05/24/2023 Lipid screening 05/24/2023 Paroxysmal atrial fibrillation 05/24/2023 Encounters Date Type Department Care Team Description 10/01/2024 Telephone [facility] Transplant Heart [address] [facility] [phone] [place] [address] Nat Villa RN from Last 3 Months Surgical History Surgery Date Site/Laterality Comments KNEE SURGERY Medical History Medical History Date Comments Heart murmur Heart failure Social History Tobacco Use Types Packs/Day Years Used Date Smoking Tobacco: Never Tobacco Cessation:Counseling Given: Not Answered Sex and Gender Information Value Date Recorded Sex Assigned at Not on file Legal Sex Male 9:54 AM BREAD DOUGH MIXER Gender Identity Not on file Sexual Orientation Not on file Obstetrics History Last Filed Vital Signs Vital Sign Reading Time Taken Comments Blood Pressure 140/93 06/03/2024 10:11 AM BREAD DOUGH MIXER Pulse 63 06/03/2024 10:11 AM BREAD DOUGH MIXER Temperature - - Respiratory Rate - - Oxygen Saturation 99% 06/03/2024 10:11 AM BREAD DOUGH MIXER Inhaled Oxygen Concentration - - Weight 101.2 kg (223 lb) 06/03/2024 10:11 AM BREAD DOUGH MIXER Height 182.9 cm (6') 06/03/2024 10:11 AM BREAD DOUGH MIXER Body Mass Index 30.24 06/03/2024 10:11 AM BREAD DOUGH MIXER Plan of Treatment Health Maintenance Due Date [...] patient's age to complete this topic Insurance [employer] OOS Member Subscriber Plan / Payer (Ef fective 2022-Present) Name:Hakeem De Leon Relation to Subscriber:Self Name:Hakeem De Leon Payer ID:[id number] (NAIC) Type:[employer] Address: [id number] [place] [address] [employer] OOS Member Subscriber Plan / Payer (Ef fective 2022-Present) Name:Hakeem De Leon Relation to Subscriber:Self Name:Hakeem De Leon Payer ID:[id number] (NAIC) Type:[employer] Address: [address] [place] [address] Care Teams Agricultural Researcher Relationship Specialty Start Date End Date Dariela Arango MD [address] [place] [address] PCP - General Internal Medicine 05/25/22 Pamela Brizuela, horseshoer Failure Coordinator 10/02/23 Rita White, horseshoer Failure Coordinator Transplant 10/02/23
== END 2024-12-30 17:07 | disposition home or self-care (01) ==
PROVIDERS: Emergency Provider Emergency Medicine
DX: L02.01 Cutaneous abscess of face (principal); I25.10 Atherosclerotic heart disease of native coronary artery without angina pectoris
CPT/HCPCS: 41800; 70486; 99284; J2003

== ENCOUNTER 2025-05-06 10:59 | Emergency (ER) | payer SELFPAY ==
[2025-05-06 11:02] VITALS: BP 115/76; PULSE 85; RESP 18; TEMP 36.4; O2SAT 100
--- NOTE | 2025-05-06 13:08 | ED_ITS ---
HPI - Skin/Abscess/Foreign Bdy General Chief complaint: Skin/Abscess/Foreign Body Stated complaint: L CHEEK SWELLING Time Seen by Provider: 05/06/25 12:01 Source: patient Mode of arrival: ambulatory Limitations: no limitations History of Present Illness HPI narrative: This is a 65-year-old male with history of CAD, AFib, CHF who presents to the ED for facial abscess. Patient states over the past few days, he has had a worsening swelling to his left cheek. He states that a couple weeks ago, he lost a filling on his left upper teeth. He has had no pain to the tooth. Denies fevers, chills. Related Data Home Medications ?Medication ?Instructions ?Recorded ?Confirmed ?Last Taken ?Type Tylenol 1,000 mg BYMOUTH DAILY PRN P ain, 04/23/23 09/10/23 Unknown History Mild omeprazole 40 mg-sodium 1 cap PO DAILY 04/23/23 0407/1409/10/23 History bicarbonate 1.1 gram capsule empagliflozin 10 mg tablet 10 mg PO HS 08/07/2309/10/23 History (Jardiance) sacubitril 49 mg-valsartan 51 mg 1 tablet PO BID 09/0909/10/23 09/10/23 History tablet (Entresto) Allergies Allergy/AdvReac Type Severity Reaction Status Date / Time No Known Allergies Allergy Verified 05/06/25 11:00 Review of Systems Review of Systems: Gen.: Denies fevers or chills Eyes: Denies eye pain or visual change ENT: Denies congestion Respiratory: Denies shortness of breath or cough CV: Denies chest pain or palpitations GI: Denies abdominal pain nausea, emesis or diarrhea denies burning, urgency, frequency or hematuria Musculoskeletal: Denies back pain or muscle pain Neuro: Denies numbness, tingling, weakness or focal weakness Skin: As per HPI Except as documented, all other systems reviewed and negative [facility] Past Medical History Medical History CAD (coronary artery disease) 07/2023 Cath: 40% mid RCA stenosis Cardiomyopathy Mitral regurgitation Microcytic anemia Borderline diabetes Borderline hypertension Healthy adult male Surgical History Surgical History No pertinent past surgical history Family History Family History Mother Diabetes mellitus Father , of a viral infection age 47 which weakened his vital organs Viral infection Sibling Diabetes mellitus Hypertension Sibling Hypertension Social History Social History Social History: , no biological children but has step children. Works at the [employer]. Smoking status: Unknown if ever smoked Alcohol intake: unknown Drinks per week: 1 Substance use: unknown Lack of Transportation: No Lack of Food: Never True Current Housing: I Have Housing Concerned About Future Housing: No Difficulty Paying Gas/Electric Bills: No Difficulty Paying for Meds: No Currently Unemployed: No Education: Don't Know Difficulty w/ Childcare or Family Care: No Living arrangements: with family Gender identity (if verbalized by the patient): Male Spiritual care concerns: No Exam Narrative: APPEARANCE: No acute distress, nontoxic, resting in bed HEENT: Normocephalic, atraumatic, OMM. Poor dentition, no intraoral areas of fluctuance, drainage RESPIRATORY: No respiratory distress CARDIOVASCULAR: Appears well perfused ABDOMINAL: Nondistended MUSCULOSKELETAl: Moves all extremities. No obvious deformities NEURO: Awake and alert. SKIN:: 1 x 1 x 2 cm area of fluctuance over the left maxillary area PSYCHIATRIC: Normal affect/mood, Course Vital Signs Vital signs: Vital Signs Temperature 97.5 F L 05/06/25 11:02 Pulse Rate 85 05/06/25 11:02 Respiratory Rate 18 05/06/25 11:02 Blood Pressure 115/76 05/06/25 11:02 Pulse Oximetry 100 05/06/25 11:02 Oxygen Delivery Room Air 05/06/25 11:02 Temperature 97.5 F L 05/06/25 11:02 Pulse Rate 85 05/06/25 11:02 Respiratory Rate 18 05/06/25 11:02 Blood Pressure 115/76 05/06/25 11:02 Pulse Oximetry 100 05/06/25 11:02 Oxygen Delivery Room Air 05/06/25 11:02 Procedures Abscess I/D face: Date of Incision: 05/06/25 Time of Incision: 13:25 Side (if applicable): left Local Anesthetic: lidocaine 1% and with epi Amount of anesthesia used (mL): 3 Technique: incised with #11 blade Amount of fluid expressed (mL): 40 Irrigation: No Packing used?: none I&D Results: Pus and Blood MDM MDM Narrative Medical decision making narrative: 65-year-old male Presenting for left facial wound/abscess. On initial evaluation patient was in no acute distress afebrile, hemodynamic stable. Differentials include but are not limited to: Abscess, cellulitis, pulpitis Notable exam findings: 1 x 1 x 2 cm area of fluctuance over the left maxillary bone, no dental involvement but poor dentition noted Bedside ultrasound was performed which showed a hypoechoic area over the left maxillary bone, likely consistent with an abscess. I and D was performed, refer to procedure note above. Patient tolerated procedure well. Wound cultures were sent. He will be started on Bactrim. He was advised follow-up his PCP next week for re-evaluation. Patient was agreeable to this plan. Given strict return precautions. Differential Diagnosis Differential Diagnosis: Abscess, cellulitis, pulpitis Discharge Plan Discharge Clinical Impression: Abscess of skin or subcutaneous tissue Qualifiers: Site of cutaneous abscess: face Qualified Code(s): L02.01 - Cutaneous abscess of face Patient Disposition: Home Condition: Stable Instructions: Antibiotic Form, Abscess (ED) Additional Instructions: Take Bactrim as prescribed. Follow-up with your PCP in the next week for re- evaluation. Return to the ED for any new worsening symptoms. Patient Language: Setswana Prescriptions: New sulfamethoxazole-trimethoprim [Bactrim DS] 800-160 mg tablet 1 tablet PO Q12H 7 Days Qty: 14 0RF No Action omeprazole-sodium bicarbonate 40-1.1 mg-gram capsule 1 cap PO DAILY Tylenol 1,000 mg BYMOUTH DAILY PRN (Reason: Pain, Mild) aspirin [Children's Aspirin] 81 mg Tablet,Chewable 81 mg PO DAILY@0800 Qty: 30 2RF metoprolol succinate [Toprol XL] 25 mg Tablet Extended Release 24 Hr 25 mg PO QAM Qty: 30 2RF Xarelto 20 mg Tablet 20 mg PO DAILY@1700 Qty: 30 2RF furosemide [Lasix] 20 mg tablet 20 mg PO DAILY Qty: 30 0RF Jardiance 10 mg tablet 10 mg PO HS atorvastatin 40 mg tablet 40 mg PO DAILY Qty: 90 3RF amiodarone 200 mg tablet 200 mg PO BID Qty: 60 0RF Entresto 49-51 mg tablet 1 tablet PO BID tetracycline 500 mg tablet 500 mg PO TID Qty: 30 0RF hydrocodone-acetaminophen 5-325 mg tablet 1 tablet PO Q6H PRN (Reason: pain) Qty: 10 0RF Follow-up/Referrals: Dariela Arango [Other]
--- OUTSIDE RECORDS SUMMARY | 2025-05-06 13:13 | XMS_ITS | Clinical Summary ---
Author Organization [facility] Address [address] [place] [address] Care Team Providers Care Booster Pump Operator Name Role Phone Dariela Arango MD Primary Care Provider [phone] Source Comments [facility] Affiliates and Associated Physician Practices is amultiple site organization consisting of ambulatory clinics and hospital sitesin [place], [place], [place] and [place]. This disclosure is being madepursuant to the Care Everywhere program and may not contain all information available regarding this patient. Last updated 18.[facility] [employer] Social History Tobacco Use Types Packs/Day Years [...] 2011 ZOSTER VACCINE (1 of 2) 2011 DEPRESSION SCREENING 05/21/2024 COVID-19 VACCINE (1 - 2024-2 6 season) 2025 INFLUENZA VACCINE (#1) 2025 Respiratory Syncytial Virus [...] this topic Insurance [employer]R Care Teams Booster Pump Operator Relationship Specialty Start Date End Date Dariela Arango MD [address] [place] [address] PCP - General Internal Medicine 10/28/19
--- OUTSIDE RECORDS SUMMARY | 2025-05-06 13:13 | XMS_ITS | Clinical Summary ---
Author Organization [facility] Address [address] [place] [address] Care Team Providers Care Nuclear Medical Tech Name Role Phone Dariela Arango MD Primary Care Provider Pamela Brizuela RN Unavailable Unavaila ble Rita White RN Unavailable Unavailable Allergies No known active allergies Medications omeprazole-sodium bicarbonate (ZEGERID) 40-1.1 mg-gram per capsule Take 1 capsule by mouth daily 05/08/20 23 Active Jardiance 10 mg tablet TAKE 1 TABLET BY MOUTH DAILY 30 tablet 11 10/08/19 24 Active amiodarone (PACERONE) 200 mg tabletIndications: Prevention of Recurrent Atrial Fibrillation Take 1 tablet (200 mg total) by mouth daily Active atorvastatin (LIPITOR) 40 mg tablet TAKE ONE TABLET BY MOUTH ONCE DAILY 90 tablet 3 06/24/19 25 Active spironolactone (ALDACTONE) 25 mg tablet TAKE 1 TABLET (25 MG TOTAL) BY MOUTH DAILY. 90 tablet 3 10/02/19 25 026 Active rivaroxaban (Xarelto) 20 mg tabletIndications: Effusion, unspecified ankle Take 1 tablet by mouth once daily with food 90 tablet 1 11/19/19 25 Active metoprolol XL (TOPROL-XL) 50 mg extended release tabletIndications: Dilated cardiomyopathy (HCC) Take 1 tablet (50 mg total) by mouth daily 90 tablet 3 11/28/19 25 026 Active sacubitriL-valsart an (ENTRESTO) 97-103 mg tabletIndications: Dilated cardiomyopathy (HCC) Take 1 tablet by mouth twice daily 60 tablet 05/06/20 25 Active sacubitriL-valsart an (Entresto) 97-103 mg tabletIndications: Dilated cardiomyopathy (HCC) TAKE 1 TABLET BY MOUTH TWICE A DAY 60 tablet 1 11/25/19 25 025 Discontinued Active Problems Problem Noted Date Diagnosed Date Chronic anticoagulation 05/29/2024 Coronary artery disease invo lving [place] coronary artery of [place] heart without angina pectoris 05/29/2024 Primary hypertension 05/29/2024 Mixed hyperlipidemia 05/29/2024 Dilated cardiomyopathy 05/24/2023 Mitral valve insufficiency 05/24/2023 Lipid screening 05/24/2023 Paroxysmal atrial fibrillation 05/24/2023 Surgical History Surgery Date Site/Laterality Comments KNEE SURGERY Medical History Medical History Date Comments Heart murmur Heart failure Social History Tobacco Use Types Packs/Day Years Used Date Smoking Tobacco: Never Tobacco Cessation:Counseling Given: Not Answered Sex and Gender Information Value Date Recorded Sex Assigned at Not on file Legal Sex Male 9:54 AM SKIP MINER Gender Identity Not on file Sexual Orientation Not on file Last Filed Vital Signs Vital Sign Reading Time Taken Comments Blood Pressure 140/93 06/03/2024 10:11 AM SKIP MINER Pulse 63 06/03/2024 10:11 AM SKIP MINER Temperature - - Respiratory Rate - - Oxygen Saturation 99% 06/03/2024 10:11 AM SKIP MINER Inhaled Oxygen Concentration - - Weight 101.2 kg (223 lb) 06/03/2024 10:11 AM SKIP MINER Height 182.9 cm (6') 06/03/2024 10:11 AM SKIP MINER Body Mass Index 30.24 06/03/2024 10:11 AM SKIP MINER Plan of Treatment Health Maintenance Due Date Last Done Comments Colon Cancer Screening-Colonoscopy 1961 Depression Screening 1961 Hepatitis C Screening 1961 Prostate Cancer Screening-PSA 1961 Hepatitis B Screening 1979 Regular Well Visit/Exam 18-64 1979 Zoster Vaccine (2 of 2) 05/20/2022 03/25/2022 Covid-19 Vaccine ( season) 2025 02/06/2022, 10/06/2021, 06/01/2021, Additional history exists Influenza Vaccine (#1) 2025 03/25/2022, 2011 DTaP/Tdap/Td Vaccine (2 - Td or Tdap) 05/06/2030 05/06/2020 Pneumococcal vaccine <65 Aged Out No longer eligible based on patient's age to complete this topic Insurance [employer] O[employer] Care Teams Nuclear Medical Tech Relationship Specialty Start Date End Date Dariela Arango MD [address] [place] [address] PCP - General Internal Medicine 05/25/22 Pamela Brizuela, airline security representative Failure Coordinator 10/02/23 Rita White, airline security representative Failure Coordinator Transplant 10/02/23
--- OUTSIDE RECORDS SUMMARY | 2025-05-06 13:13 | XMS_ITS | Encounter Summary ---
Author Organization [facility] Address [facility] [place] [address] Care Team Providers Care Patient Educator Name Role Phone Dariela Arango MD Primary Care Provider [phone] Encounter Details Date Type Department Care Team (Late st Contact Info) Description 11/07/2023 Abstract [facility], [address] [address] Lesley Moody MA Social History Tobacco Use [...] on filedocumented in this encounter Care Teams Patient Educator Relationship Specialty Start Date End Date Dariela Arango MD [address] [place] [address] PCP - General INTERNAL MEDICINE 05/07/23 documented as of this encounter
--- OUTSIDE RECORDS SUMMARY | 2025-05-06 13:13 | XMS_ITS | Clinical Summary ---
Author Organization [facility] Address [address] [place] [address] Care Team Providers Care Fast Food Server Name Role Phone Dariela Arango MD Primary Care Provider [phone] Medications JARDIANCE 10 MG tablet Take 1 [...] of 2) 2011 COVID-19 Vaccine (1 - 2024-2 6 season) 2025 Influenza Adult (#1) 2025 RSV Immunization or 60+ Years (1 - 1-dose 75+ series) 01/10/2036 Hepatitis A Vaccines Aged Out No long er eligible based on patient's age to complete this topic Meningococcal B Vaccine Aged Out No l onger eligible based on patient's age to complete this topic Meningococcal Vaccine Aged Out No russ fermin eligible based on patient's age to complete this topic RSV Immunizations Under 20 Months Aged Out No longer eligible based on patient's age to complete this topic Insurance [facility] Care Teams Fast Food Server Relationship Specialty Start Date End Date Dariela Arango MD [address] [place] [address] PCP - General INTERNAL MEDICINE 05/07/23
--- OUTSIDE RECORDS SUMMARY | 2025-05-06 14:14 | XMS_ITS | Clinical Summary ---
Author Organization [facility] Address [address] [place] [address] Care Team Providers Care Rougher Helper Name Role Phone Dariela Arango MD Primary [...] anticoagulation 05/29/2024 Coronary artery disease invo lving [place] coronary artery of [place] heart without angina pectoris 05/29/2024 Primary hypertension [...] on file Legal Sex Male 9:54 AM MGMT CONSULTANT Gender Identity Not on file Sexual Orientation Not on file Last Filed Vital Signs Vital Sign Reading Time Taken Comments Blood Pressure 140/93 06/03/2024 10:11 AM MGMT CONSULTANT Pulse 63 06/03/2024 10:11 AM MGMT CONSULTANT Temperature - - Respiratory Rate - - Oxygen Saturation 99% 06/03/2024 10:11 AM MGMT CONSULTANT Inhaled Oxygen Concentration - - Weight 101.2 kg (223 lb) 06/03/2024 10:11 AM MGMT CONSULTANT Height 182.9 cm (6') 06/03/2024 10:11 AM MGMT CONSULTANT Body Mass Index 30.24 06/03/2024 10:11 AM MGMT CONSULTANT Plan of Treatment Health Maintenance Due Date [...] patient's age to complete this topic Insurance [employer] OOS [employer] OOS Care Teams Rougher Helper Relationship Specialty Start Date End Date Dariela Arango MD [address] [place] [address] PCP - General Internal Medicine 05/25/22 Pamela Brizuela, county or city auditor Failure Coordinator 10/02/23 Rita White, county or city auditor Failure Coordinator Transplant 10/02/23
--- OUTSIDE RECORDS SUMMARY | 2025-05-06 14:14 | XMS_ITS | Encounter Summary ---
Author Organization [facility] Address [facility] [place] [address] Care Team Providers Care Water Quality Specialist Name Role Phone Dariela Arango MD Primary Care Provider [phone] Encounter Details Date Type Department Care Team (Late st Contact Info) Description 11/07/2023 Abstract [facility] [facility], [address] [address] Lesley Moody MA Social History Tobacco Use [...] on filedocumented in this encounter Care Teams Water Quality Specialist Relationship Specialty Start Date End Date Dariela Arango MD [address] [place] [address] PCP - General INTERNAL MEDICINE 05/07/23 documented as of this encounter
--- OUTSIDE RECORDS SUMMARY | 2025-05-06 14:14 | XMS_ITS | Clinical Summary ---
Author Organization [facility] Address [address] [place] [address] Care Team Providers Care Geoscience Technician Name Role Phone Dariela Arango MD Primary Care Provider Source Comments [facility] Affiliates and Associated Physician Practices is amultiple site organization consisting of ambulatory clinics and hospital sitesin [place], [place], [place] and [place]. This disclosure is being madepursuant to the Care Everywhere program and may not contain all information available regarding this patient. Last updated 18.[facility] [employer] Social History Tobacco Use Types Packs/Day Years [...] this topic Insurance [employer]R Care Teams Geoscience Technician Relationship Specialty Start Date End Date Dariela Arango MD [address] [place] [address] PCP - General Internal Medicine 10/28/19
--- OUTSIDE RECORDS SUMMARY | 2025-05-06 14:14 | XMS_ITS | Clinical Summary ---
Author Organization [facility] Address [address] [place] [address] Care Team Providers Care Blanket Binder Name Role Phone Dariela Arango MD Primary Care Provider [phone] Medications JARDIANCE 10 MG tablet Take 1 [...] patient's age to complete this topic Insurance [facility] Care Teams Blanket Binder Relationship Specialty Start Date End Date Dariela Arango MD [address] [place] [address] PCP - General INTERNAL MEDICINE 05/07/23
== END 2025-05-06 13:54 | disposition home or self-care (01) ==
PROVIDERS: Emergency Provider Student in an Organized Health Care Education/Training Program
DX: L02.01 Cutaneous abscess of face (principal); I25.10 Atherosclerotic heart disease of native coronary artery without angina pectoris; I48.91 Unspecified atrial fibrillation; E11.9 Type 2 diabetes mellitus without complications; I11.0 Hypertensive heart disease with heart failure; I50.9 Heart failure, unspecified
CPT/HCPCS: 10060; 87070; 87075; 99283